=== PATIENT | male | born 1965 ===

== ENCOUNTER 2016-09-28 10:36 | Inpatient (IN) | payer MEDICARE, OTHER ==
[2016-09-28 10:45] VITALS: BMI 31.2
--- NOTE | 2016-09-28 12:02 | ED PDOC ---
Lower Extremity Pain/Injury Time Seen by Provider: 09/28/16 12:01 Chief Complaint (Nursing): Lower Extremity Problem/Injury Chief Complaint (Provider): right foot and ankle pain History Per: Patient Additional Complaint(s): 50 year old male presents to ED with atraumatic pain and swelling to right foot and lower leg that started about 3 days ago. No fever or chills. Patient able to walk and fully bear weight. He rates pain as 5/10. Patient denies recent travel, denies chest pain, SOB or CONKLIN. Patient states he has history of left leg DVT. He takes aspirin daily but does not take any other blood thinners. Past Medical History Reviewed: Historical Data, Nursing Documentation, Vital Signs Vital Signs: Last Vital Signs Temp 98.3 F 09/28/16 10:45 Pulse 70 09/28/16 10:45 Resp 17 09/28/16 10:45 BP 132/72 09/28/16 10:45 Pulse Ox 97 09/28/16 10:45 - Medical History PMH: Anxiety, Back Problems, Depression, Deep Vein Thrombosis (to left leg several years ago), HTN, Hyperlipidemia - Surgical History Surgical History: Hernia Repair Other surgeries: bilateral leg surgery, polyp removed from throat - Family History Family History: States: No Known Family Hx - Living Arrangements Living Arrangements: With Family - Social History Current smoker - smoking cessation education provided: Yes ("sometimes") Alcohol: None Drugs: Denies - Home Medications Home Medications: Ambulatory Orders Medication Instructions Recorded Aspirin [Ecotrin] 81 mg PO DAILY 12/13/15 Benztropine [Cogentin] 2 mg PO BID 12/13/15 Docusate Sodium [Stool Softener] 200 mg PO HS 12/13/15 Topiramate [Topamax] 50 mg PO BID 12/13/15 cloZAPine [Clozaril] 50 mg PO BID 12/13/15 cloZAPine [Clozaril] 100 mg PO BID 12/13/15 Acetaminophen with Codeine 1 tab PO BID PRN 09/28/16 [Tylenol with Codeine No. 3 300 mg-30 mg] Atorvastatin [Lipitor] 10 mg PO DAILY 09/28/16 Cyclobenzaprine [Flexeril] 5 mg PO DAILY PRN 09/28/16 Metformin ER [Glucophage XR] 500 mg PO DAILY 09/28/16 Nebivolol [Bystolic] 10 mg PO DAILY 09/28/16 Cohocton-3 Fatty Acids [Cohocton-3] 1,000 mg PO BID 09/28/16 - Allergies Allergies/Adverse Reactions: Allergies Allergy/AdvReac Type Severity Reaction Status Date / Time chlorpromazine HCl Allergy other Verified 12/12/15 22:36 [From Thorazine] haloperidol [From Haldol] Allergy other Verified 12/12/15 22:37 haloperidol lactate Allergy other Verified 12/12/15 22:37 [From Haldol] Penicillins Allergy CONGESTION Verified 12/12/15 22:36 PORK Allergy NAUSEA Verified 12/12/15 22:36 Wells Criteria for PE - Wells Criteria for Pulmonary Embolism Clinical Signs and Symptoms of DVT: Yes P.E is #1 Diagnosis, or Equally Likely: No Heart Rate >100: No Immobilization at least 3 days;Surgery previous 4 weeks: No Previous, objectively diagnosed PE or DVT: No Hemoptysis: No Malignancy w/treatment within 6 months, or palliative: No Total Score: 3 Review of Systems ROS Statement: Except As Marked, All Systems Reviewed And Found Negative Constitutional: Negative for: Fever Cardiovascular: Negative for: Chest Pain Respiratory: Negative for: Cough, Shortness of Breath Musculoskeletal: Positive for: Other (right leg and foot pain and swelling) Neurological: Negative for: Weakness, Numbness, Headache, Dizziness Physical Exam - Reviewed Nursing Documentation Reviewed: Yes Vital Signs Reviewed: Yes - Physical Exam Appears: Positive for: Well, Non-toxic, No Acute Distress Skin: Negative for: Rash Eye Exam: Positive for: Normal appearance Cardiovascular/Chest: Positive for: Regular Rate, Rhythm Respiratory: Positive for: Normal Breath Sounds Gastrointestinal/Abdominal: Positive for: Soft. Negative for: Tenderness Extremity: Positive for: Tenderness (right foot and ankle, right calf), Calf Tenderness (right ), Swelling (right calf, foot and ankle). Negative for: Deformity Neurologic/Psych: Positive for: Alert, Oriented, Gait (steady) - Laboratory Results Result Diagrams: 09/28/16 12:50 09/28/16 12:50 - ECG Interpretation Of ECG: Sinus silvio 61 bpm in [facility], reviewed by PA and ED attending. O2 Sat by Pulse Oximetry: 97 Pulse Ox Interpretation: Normal - Other Rad CXR X-Ray: Interpreted by Me, Viewed By Me X-Ray Interpretation: normal study Doppler right leg X-Ray: Read By Radiologist X-Ray Interpretation: see below Right foot, ankle, tib/fib x-rays X-Ray: Interpreted by Me, Viewed By Me X-Ray Interpretation: no fx, no dislocation, heel spur Medical Decision Making Medical Decision Makin50 year old with right leg pain and swelling Plan: CBC CMP Trop BMP PT/PTT Doppler right leg X-rays right foot, ankle, tib/fib PO tylenol EKG US: IMPRESSION: Positive examination for acute deep vein thrombosis extending from the popliteal tibial vein proximally to the distal superficial femoral vein. PMD is Dr. Gupta, case was d/w Dr. Gupta who states to admit patient to telemetry and order initial dose lovenox. Patient aware of all findings and agrees with admission. Disposition - Clinical Impression Clinical Impression: Right leg DVT - Patient ED Disposition Is Patient to be Admitted: Yes - Disposition Disposition Time: 16:06 Condition: FAIR - Pt Status Changed To: Hospital Disposition Of: Inpatient - Admit Certification Admit to Inpatient:: After my assessment, the patient will require hospitalization for at least two midnights. This is because of the severity of symptoms shown, intensity of services needed, and/or the medical risk in this patient being treated as an outpatient. - POA Present On Arrival: None Results - Lab Results Lab Results: 09/28/16 09/28/16 09/28/16 12:50 12:50 12:50 WBC 6.7 RBC 4.46 Hgb 13.6 Hct 40.8 MCV 91.5 MCH 30.6 MCHC 33.4 RDW 14.8 H Plt Count 135 MPV 10.1 Neut % (Auto) 47.8 L Lymph % (Auto) 38.6 [place] % (Auto) 7.1 Eos % (Auto) 5.4 H Baso % (Auto) 1.1 Neut # 3.2 Lymph # 2.6 [place] # 0.5 Eos # 0.4 Baso # 0.1 PT 11.2 INR 1.1 APTT 23.7 L Sodium 144 Potassium 3.9 Chloride 113 H Carbon Dioxide 20 L Anion Gap 15 BUN 10 Creatinine 0.9 Est GFR ( Amer) > 60 Est GFR (Non-Af Amer) > 60 Random Glucose 121 H Calcium 9.3 Total Bilirubin 0.6 AST 28 ALT 43 Alkaline Phosphatase 95 Troponin I < 0.0120 NT-Pro-B Natriuret Pep 74.4 Total Protein 7.3 Albumin 4.4 Globulin 2.9 Albumin/Globulin Ratio 1.5
[2016-09-28 13:08] LABS: BASO # 0.1 K/uL (0.0-0.2); BASO % 1.1 % (0.0-2.0); EOS # 0.4 K/uL (0.0-0.7); EOS % 5.4 % (0.0-4.0); HEMOGLOBIN 13.6 g/dL (12.0-18.0); LYMPH # 2.6 K/uL (1.0-4.3); LYMPH % 38.6 % (20.0-40.0); MEAN CELL VOLUME 91.5 fl (80.0-94.0); MEAN CORPUSCULAR HEMOGLOBIN 30.6 pg (27.0-31.0); MEAN CORPUSCULAR HGB CONC 33.4 g/dL (33.0-37.0); MEAN PLATELET VOLUME 10.1 fl (7.2-11.7); MONO # 0.5 K/uL (0.0-0.8); MONO % 7.1 % (0.0-10.0); NEUT # 3.2 K/uL (1.8-7.0); NEUT % 47.8 % (50.0-75.0); NRBC % 0.2 % (0.0-0.0); RBC 4.46 Mil/uL (4.40-5.90); RED CELL DISTRIBUTION WIDTH 14.8 % (11.5-14.5); WHITE BLOOD COUNT 6.7 K/uL (4.8-10.8)
[2016-09-28 13:23] LABS: ALB/GLOB RATIO 1.5 (1.0-2.1); ALBUMIN 4.4 g/dL (3.5-5.0); ALT/SGPT 43 U/L (21-72); AST/SGOT 28 U/L (17-59); BLOOD UREA NITROGEN 10 mg/dl (9-20); CALCIUM 9.3 mg/dL (8.4-10.2); GFR AFRICAN-AMERICAN > 60; GFR NON-AFRICAN AMERICAN > 60
[2016-09-28 13:25] LABS: INR 1.1 (0.9-1.2); PROTHROMBIN TIME 11.2 Seconds (9.8-13.1)
[2016-09-28 13:26] LABS: PARTIAL THROMBOPLASTIN TIME 23.7 Seconds (25.6-37.1)
[2016-09-28 13:35] LABS: B-TYPE NATRIURETIC PEPTIDE 74.4 pg/ml (0-900)
[2016-09-28] MEDS ORDERED: Enoxaparin 80 mg Syringe SC STA (14:15)
--- NOTE | 2016-09-28 14:28 | US ---
PROCEDURE: Right lower extremity venous duplex Doppler. HISTORY: swelling right calf and foot COMPARISON: None available. TECHNIQUE: Common femoral, superficial femoral, popliteal and posterior tibial veins were evaluated. Flow was assessed with color Doppler, compressibility, assessment of phasic flow and augmentation response. FINDINGS: COMMON FEMORAL VEIN: Unremarkable normal compressibility augmentation and phases [place] SUPERFICIAL FEMORAL VEIN: Noncompressibility in the distal right superficial femoral vein. POPLITEAL VEIN: Noncompressible right popliteal vein. POSTERIOR TIBIAL VEIN: Noncompressible right posterior tibial vein. OTHER FINDINGS: None. IMPRESSION: Positive examination for acute deep vein thrombosis extending from the popliteal tibial vein proximally to the distal superficial femoral vein. Critical Results Protocol Study completed at 13:52 Results conveyed verbally 14:22 Study interpreted 14:25. September 28, 2016.
--- NOTE | 2016-09-28 14:54 | RAD ---
PROCEDURE: Radiographs of the right tibia and fibula. HISTORY: pain COMPARISON: None available. TECHNIQUE: Frontal and lateral views obtained. FINDINGS: BONES: No fracture or destructive lesion. JOINT SPACES: Unremarkable. OTHER FINDINGS: None. IMPRESSION: Unremarkable radiographs of the right tibia and fibula.
--- NOTE | 2016-09-28 14:56 | RAD ---
PROCEDURE: Right Ankle Radiographs. HISTORY: pain COMPARISON: None FINDINGS: BONES: Normal. No fracture. JOINTS: Normal. No osteoarthritis. Ankle mortise maintained. Talar dome intact SOFT TISSUES: Normal. OTHER FINDINGS: None. IMPRESSION: Normal right ankle radiographs.
--- NOTE | 2016-09-28 14:56 | RAD ---
PROCEDURE: Right Foot Radiographs. HISTORY: pain COMPARISON: None. FINDINGS: BONES: No fracture. Small plantar calcaneal spur. JOINTS: Normal. SOFT TISSUES: Normal. OTHER FINDINGS: None. IMPRESSION: Small plantar calcaneal spur. Otherwise unremarkable.
--- NOTE | 2016-09-28 14:57 | RAD ---
HISTORY: clearance COMPARISON: 12/12/2015 FINDINGS: LUNGS: No active pulmonary disease. PLEURA: No significant pleural effusion identified, no pneumothorax apparent. CARDIOVASCULAR: Normal. OSSEOUS STRUCTURES: No significant abnormalities. VISUALIZED UPPER ABDOMEN: Normal. OTHER FINDINGS: None. IMPRESSION: No active disease.
[2016-09-29] MEDS ORDERED: Acetaminophen-Codeine 300/30 mg Tab PO PRN (01:28)
[2016-09-29] MEDS: Enoxaparin 80 mg Syringe SC SCH ×2 (08:42→21:18)
[2016-09-29] MEDS: Omega-3-Acid Ethyl Esters 1 GM Cap PO SCH ×2 (08:42→16:29)
[2016-09-29] MEDS ORDERED: Patient's Own Med (Metformin Er [Glucophage Xr] 500 mg) PO SCH (09:00)
--- NOTE | 2016-09-29 10:23 | CP.PCM.HP ---
History of Present Illness - History of Present Illness History of Present Illness: This is a 50 y/o male admitted for worsening right leg pain and edema. Initial exam showed extensive DVT right leg. Patient claims that he was diagnosed to have DVT 4 years ago and was placed on meds. Currently only on aspirin Past hx depression on Psych meds, HTN hyperlipidemia back pains. DM 2 Present on Admission - Present on Admission Any Indicators Present on Admission: No History of DVT/PE: Yes History of Uncontrolled Diabetes: No Urinary Catheter: No Decubitus Ulcer Present: No Review of Systems - Integumentary Integumentary: Swelling Past Patient History - Infectious Disease Hx of Infectious Diseases: None - Past Medical History & Family History Past Medical History?: Yes - Past Social History Smoking Status: Light Smoker < 10 Cigarettes Daily - CARDIAC Hx Cardiac Disorders: Yes Hx Hypertension: Yes - PULMONARY Hx Respiratory Disorders: No - NEUROLOGICAL Hx Neurological Disorder: No - HEENT Hx HEENT Problems: No - RENAL Hx Chronic Kidney Disease: No - ENDOCRINE/METABOLIC Hx Endocrine Disorders: No - HEMATOLOGICAL/ONCOLOGICAL Hx Blood Disorders: No Hx AIDS: No Hx Human Immunodeficiency Virus (HIV): No - INTEGUMENTARY Hx Dermatological Problems: No - MUSCULOSKELETAL/RHEUMATOLOGICAL Hx Musculoskeletal Disorders: Yes Hx Back Pain: Yes Hx Falls: No - GASTROINTESTINAL Hx Gastrointestinal Disorders: No - GENITOURINARY/GYNECOLOGICAL Hx Genitourinary Disorders: No - PSYCHIATRIC Hx Psychophysiologic Disorder: Yes Hx Anxiety: Yes Hx Depression: Yes Hx Substance Use: No - SURGICAL HISTORY Hx Surgeries: Yes Other/Comment: Hx of Polyp removed from Throat - ANESTHESIA Hx Anesthesia: Yes Hx Anesthesia Reactions: No Hx Malignant Hyperthermia: No Has any member of the family had a problem w/ anesthesia?: No Meds Allergies/Adverse Reactions: Allergies Allergy/AdvReac Type Severity Reaction Status Date / Time chlorpromazine HCl Allergy other Verified 12/12/15 22:36 [From Thorazine] haloperidol [From Haldol] Allergy other Verified 12/12/15 22:37 haloperidol lactate Allergy other Verified 12/12/15 22:37 [From Haldol] Penicillins Allergy CONGESTION Verified 12/12/15 22:36 PORK Allergy NAUSEA Verified 12/12/15 22:36 Physical Exam - Head Exam Head Exam: NORMAL INSPECTION - Eye Exam Eye Exam: Normal appearance - ENT Exam ENT Exam: Mucous Membranes Moist - Respiratory Exam Respiratory Exam: Clear to Auscultation Bilateral - Cardiovascular Exam Cardiovascular Exam: REGULAR RHYTHM - GI/Abdominal Exam GI & Abdominal Exam: Normal Bowel Sounds - Neurological Exam Neurological exam: CN II-XII Intact - Psychiatric Exam Psychiatric exam: Anxious Results - Vital Signs Recent Vital Signs: Last Vital Signs Temp 98.1 F 09/29/16 08:16 Pulse 54 L 09/29/16 08:16 Resp 20 09/29/16 08:16 BP 149/72 09/29/16 08:16 Pulse Ox 96 09/29/16 08:16 - Labs Result Diagrams: 09/28/16 12:50 09/28/16 12:50 Assessment & Plan (1) Right leg DVT Status: Acute (2) Hyperlipidemia Status: Acute (3) Diabetes mellitus type 2 in nonobese Status: Acute (4) Hypertension Status: Acute - Assessment and Plan (Free Text) Plan: discussed results of exam cont all meds Lovenox 80 mg q 12 Int radiology for filter insertion hematology eval cont all other meds.
--- NOTE | 2016-09-29 10:46 | CP.PCM.CON ---
History of Present Illness - History of Present Illness History of Present Illness: This is a 50 yrs old male who was brought to the ER with c/o swelling and pain in the right foot and right leg. He was found to have diffuse DVT in the tibial and femoral artery. He gives no h/o of being immobile or travelling a long distance. No abdominal pain, no bleeding from any site. No loss of weight or appetite. He had a similar episode 4 yrs ago and was on anticoagulants for 6 months ago. No other info available on that admission. Past h/o HTN, hyperlipididemia, anxiety and back problems Past Patient History - Infectious Disease Hx of Infectious Diseases: None - Past Medical History & Family History Past Medical History?: Yes - Past Social History Smoking Status: Light Smoker < 10 Cigarettes Daily - CARDIAC Hx Cardiac Disorders: Yes Hx Hypertension: Yes - PULMONARY Hx Respiratory Disorders: No - NEUROLOGICAL Hx Neurological Disorder: No - HEENT Hx HEENT Problems: No - RENAL Hx Chronic Kidney Disease: No - ENDOCRINE/METABOLIC Hx Endocrine Disorders: No - HEMATOLOGICAL/ONCOLOGICAL Hx Blood Disorders: No Hx AIDS: No Hx Human Immunodeficiency Virus (HIV): No - INTEGUMENTARY Hx Dermatological Problems: No - MUSCULOSKELETAL/RHEUMATOLOGICAL Hx Musculoskeletal Disorders: Yes Hx Back Pain: Yes Hx Falls: No - GASTROINTESTINAL Hx Gastrointestinal Disorders: No - GENITOURINARY/GYNECOLOGICAL Hx Genitourinary Disorders: No - PSYCHIATRIC Hx Psychophysiologic Disorder: Yes Hx Anxiety: Yes Hx Depression: Yes Hx Substance Use: No - SURGICAL HISTORY Hx Surgeries: Yes Other/Comment: Hx of Polyp removed from Throat - ANESTHESIA Hx Anesthesia: Yes Hx Anesthesia Reactions: No Hx Malignant Hyperthermia: No Has any member of the family had a problem w/ anesthesia?: No Meds Allergies/Adverse Reactions: Allergies Allergy/AdvReac Type Severity Reaction Status Date / Time chlorpromazine HCl Allergy other Verified 12/12/15 22:36 [From Thorazine] haloperidol [From Haldol] Allergy other Verified 12/12/15 22:37 haloperidol lactate Allergy other Verified 12/12/15 22:37 [From Haldol] Penicillins Allergy CONGESTION Verified 12/12/15 22:36 PORK Allergy NAUSEA Verified 12/12/15 22:36 - Medications Medications: Current Medications Acetaminophen/Codeine Phosphate (Tylenol/Codeine 300 Mg/30 Mg) 1 tab PO BID PRN PRN Reason: Pain, severe (8-10) Aspirin (Ecotrin) 81 mg PO DAILY [facility] Last Admin: 09/29/16 08:43 Dose: 81 mg Atorvastatin Calcium (Lipitor) 10 mg PO DAILY [facility] Last Admin: 09/29/16 08:42 Dose: 10 mg Benztropine Mesylate (Cogentin) 2 mg PO BID [facility] Last Admin: 09/29/16 08:43 Dose: 2 mg Cyclobenzaprine HCl (Flexeril) 5 mg PO DAILY PRN PRN Reason: Muscle spasm Docusate Sodium (Colace) 200 mg PO [facility] Enoxaparin Sodium (Lovenox) 80 mg SC Q12 [facility] PRN Reason: Protocol Last Admin: 09/29/16 08:42 Dose: 80 mg Metformin HCl (Glucophage) 500 mg PO BID [facility] Last Admin: 09/29/16 08:42 Dose: 500 mg Metoprolol Tartrate (Lopressor) 50 mg PO Q12 [facility] Last Admin: 09/29/16 08:47 Dose: Not Given [id number] Ethyl Esters (Lovaza) 1 gm PO BID [facility] Last Admin: 09/29/16 08:42 Dose: 1 gm Topiramate (Topamax) 50 mg PO BID [facility] Last Admin: 09/29/16 08:43 Dose: 50 mg Physical Exam - Additional Findings Additional findings: Physical exam; Alert. well oriented, in no acute distress neck; supple, no adenopathycheat; Clear, no rales, or rhonchi Chest;Heart, no murmur Heart; RSR, no murmur Abd; Soft, no mass, no h/s megaly Right lower extremity swollen, but no redness. Results - Vital Signs Recent Vital Signs: Last Vital Signs Temp 98.1 F 09/29/16 08:16 Pulse 54 L 09/29/16 08:16 Resp 20 09/29/16 08:16 BP 149/72 09/29/16 08:16 Pulse Ox 96 09/29/16 08:16 - Labs Result Diagrams: 09/28/16 12:50 09/28/16 12:50 Assessment & Plan - Assessment and Plan (Free Text) Assessment: Impression; DVT right lower extremity. ? Hypercoagulable state, ?occult malignancies. Plan: Plan; Will do a work up for hypercoagulable state. Ct scan of the chest ,abd and pelvis. Continue the lovenox - Date & Time Date: 09/29/16 Time: 11:12
--- NOTE | 2016-09-29 13:41 | PCM.IRP ---
Chief Complaint: DVT Objective - Vital Signs/Intake and Output Vital Signs (last 24 hours): Vital Signs - 24 hr 09/28/16 09/28/16 09/28/16 16:07 18:29 20:28 Temperature 98.2 F 98.4 F Pulse Rate 59 L 62 Pulse Rate [ Left Brachial] Respiratory 18 20 Rate Blood Pressure 132/78 136/74 O2 Sat by Pulse 97 99 Oximetry 09/29/16 09/29/16 09/29/16 00:03 01:59 05:27 Temperature 97.6 F 97.6 F Pulse Rate 59 L 54 L Pulse Rate [ 58 L Left Brachial] Respiratory 20 18 20 Rate Blood Pressure 116/66 128/54 L O2 Sat by Pulse 98 98 96 Oximetry 09/29/16 09/29/16 09/29/16 08:16 09:00 13:04 Temperature 98.1 F 98.0 F Pulse Rate 54 L 54 L 71 Pulse Rate [ Left Brachial] Respiratory 20 18 Rate Blood Pressure 149/72 118/66 O2 Sat by Pulse 96 100 Oximetry - Medications Medications: Current Medications Acetaminophen/Codeine Phosphate (Tylenol/Codeine 300 Mg/30 Mg) 1 tab PO BID PRN PRN Reason: Pain, severe (8-10) Aspirin (Ecotrin) 81 mg PO DAILY [facility] Last Admin: 09/29/16 08:43 Dose: 81 mg Atorvastatin Calcium (Lipitor) 10 mg PO DAILY [facility] Last Admin: 09/29/16 08:42 Dose: 10 mg Benztropine Mesylate (Cogentin) 2 mg PO BID [facility] Last Admin: 09/29/16 08:43 Dose: 2 mg Cyclobenzaprine HCl (Flexeril) 5 mg PO DAILY PRN PRN Reason: Muscle spasm Docusate Sodium (Colace) 200 mg PO [facility] Enoxaparin Sodium (Lovenox) 80 mg SC Q12 [facility] PRN Reason: Protocol Last Admin: 09/29/16 08:42 Dose: 80 mg Metformin HCl (Glucophage) 500 mg PO BID [facility] Last Admin: 09/29/16 08:42 Dose: 500 mg Metoprolol Tartrate (Lopressor) 50 mg PO Q12 [facility] [id number] Ethyl Esters (Lovaza) 1 gm PO BID [facility] Last Admin: 09/29/16 08:42 Dose: 1 gm Topiramate (Topamax) 50 mg PO BID [facility] Last Admin: 09/29/16 08:43 Dose: 50 mg Assessment/Plan - Assessment and Plan (Free Text) Assessment: 50 y/o patient with acute DVT currently on anticoagulation. The patient does not meet criteria for IVC filter. I have discussed this case with Dr. Rudy Weiss who agrees. Please reconsult if required.
[2016-09-29] MEDS ORDERED: Sodium Chloride 0.9% 50 ML IV ONE (14:40)
[2016-09-29] MEDS ORDERED: Iodixanol 320 MG/ML 100 ML BOTTLE IV ONE (14:40)
--- NOTE | 2016-09-29 16:14 | CT ---
PROCEDURE: CT Chest with contrast (Pulmonary Angiogram) HISTORY: DVT COMPARISON: None available. TECHNIQUE: Axial computed tomography images were obtained of the chest in the pulmonary arterial phase of enhancement. Coronal and sagittal reformatted images were created and reviewed. Maximum intensity projection (MIP) reconstructed images in the following planes: Axial projection only. Seven Intravenous contrast dose: 99 cc Visipaque 320 Mean Hounsfield unit values in the main pulmonary artery: 234.98 Radiation dose: Total exam DLP = 1226.24 mGy-cm. This CT exam was performed using one or more of the following dose reduction techniques: Automated exposure control, adjustment of the mA and/or kV according to patient size, and/or use of iterative reconstruction technique. FINDINGS: PULMONARY ARTERIES: Segmental filling defects right upper lobe pulmonary artery branches consistent with acute pulmonary embolism. No central pulmonary emboli identified. AORTA: No acute findings. No thoracic aortic aneurysm. LUNGS: Subsegmental infiltrates right lower lobe affecting lateral and basilar segments. Atelectasis at the left base also identified. PLEURAL SPACES: Unremarkable. No effusion or pneuomothorax. HEART: Unremarkable. No cardiomegaly. No significant pericardial effusion. LYMPH NODES: No lymphadenopathy. BONES, CHEST WALL: Unremarkable. No fracture or destructive lesion OTHER FINDINGS: Unremarkable. IMPRESSION: Acute pulmonary embolism confined to the right upper lobe pulmonary arteries. No central pulmonary embolism identified. Critical results protocol: Study completed 14:46. Results conveyed verbally at 16:06. Results conveyed to with a read back from MICHELLE Alcaraz involved in the care and management patient Interpretation finalized and available for review 16:08.
--- NOTE | 2016-09-29 16:28 | CT ---
PROCEDURE: CT Abdomen and Pelvis with contrast HISTORY: DVT COMPARISON: None. TECHNIQUE: Contrast dose: 99 cc Visipaque 320. Radiation dose: Total exam DLP = 1226.24 mGy-cm. This CT exam was performed using one or more of the following dose reduction techniques: Automated exposure control, adjustment of the mA and/or kV according to patient size, and/or use of iterative reconstruction technique. FINDINGS: LOWER THORAX: Subsegmental atelectasis both lower lobes. LIVER: Hepatic steatosis. No focal masses. No intrahepatic bile duct dilatation or perihepatic ascites. GALLBLADDER AND BILE DUCTS: Unremarkable. PANCREAS: Unremarkable. No gross lesion or ductal dilatation. SPLEEN: Unremarkable. ADRENALS: Unremarkable. No mass. KIDNEYS AND URETERS: Unremarkable. No hydronephrosis. No solid mass. VASCULATURE: Unremarkable. No aortic aneurysm. BOWEL: Unremarkable. No obstruction. No gross mural thickening. APPENDIX: Normal appendix. PERITONEUM: Unremarkable. No free fluid. No free air. LYMPH NODES: Unremarkable. No enlarged lymph nodes. BLADDER: Unremarkable. REPRODUCTIVE: Unremarkable. BONES: No acute fracture. OTHER FINDINGS: Bilateral fat containing inguinal hernias. IMPRESSION: No significant or acute findings to account for/ related to the clinical presentation. Particular attention directed to the inferior vena cava and pelvic veins. No evidence of proximal propagation into the abdomen and pelvis in in individual who by history has deep vein thrombosis right lower extremity.
--- NOTE | 2016-09-29 18:00 | CARD ---
APPROVED REPORT EKG Measurement Heart [id number] <Conclusion> Sinus rhythm with premature atrial complexes in a pattern of bigeminy Otherwise normal ECG
[2016-09-29] MEDS ORDERED: DOCUSATE SODIUM 200 MG PO SCH (22:00)
[2016-09-30 07:20] LABS: INR 1.2 (0.9-1.2); PROTHROMBIN TIME 12.5 Seconds (9.8-13.1)
[2016-09-30] MEDS: Enoxaparin 80 mg Syringe SC SCH ×2 (08:14→22:10)
[2016-09-30] MEDS: Omega-3-Acid Ethyl Esters 1 GM Cap PO SCH ×2 (08:16→16:48)
--- NOTE | 2016-09-30 10:27 | CP.PCM.PN ---
Subjective - Date & Time of Evaluation Date of Evaluation: 09/30/16 Time of Evaluation: 10:25 - Subjective Subjective: Patient is doing well Has no problems with Lovenox No GI bleed Noted some pallor. Has no fever. Objective - Vital Signs/Intake and Output Vital Signs (last 24 hours): Temp Pulse Resp BP Pulse Ox 98.4 F 70 18 136/71 96 09/30/16 08:00 09/30/16 08:15 09/30/16 08:00 09/30/16 08:15 09/30/16 08:00 - Medications Medications: Current Medications Acetaminophen/Codeine Phosphate (Tylenol/Codeine 300 Mg/30 Mg) 1 tab PO BID PRN PRN Reason: Pain, severe (8-10) Aspirin (Ecotrin) 81 mg PO DAILY [facility] Last Admin: 09/30/16 08:16 Dose: 81 mg Atorvastatin Calcium (Lipitor) 10 mg PO DAILY [facility] Last Admin: 09/30/16 08:15 Dose: 10 mg Benztropine Mesylate (Cogentin) 2 mg PO BID [facility] Last Admin: 09/30/16 08:16 Dose: 2 mg Cyclobenzaprine HCl (Flexeril) 5 mg PO DAILY PRN PRN Reason: Muscle spasm Docusate Sodium (Colace) 200 mg PO HS [facility] Last Admin: 09/29/16 21:17 Dose: 200 mg Enoxaparin Sodium (Lovenox) 80 mg SC Q12 [facility] PRN Reason: Protocol Last Admin: 09/30/16 08:14 Dose: 80 mg Metformin HCl (Glucophage) 500 mg PO BID [facility] Last Admin: 09/30/16 08:14 Dose: 500 mg Metoprolol Tartrate (Lopressor) 50 mg PO Q12 [facility] Last Admin: 09/30/16 08:15 Dose: 50 mg [id number]-8-Xcef Ethyl Esters (Lovaza) 1 gm PO BID [facility] Last Admin: 09/30/16 08:16 Dose: 1 gm Topiramate (Topamax) 50 mg PO BID [facility] Last Admin: 09/30/16 08:15 Dose: 50 mg - Labs Labs: PT 12.5 Seconds (9.8-13.1) 09/30/16 06:10 INR 1.2 (0.9-1.2) 09/30/16 06:10 APTT 23.7 Seconds (25.6-37.1) L 09/28/16 12:50 - Head Exam Head Exam: NORMAL INSPECTION - Eye Exam Eye Exam: Normal appearance - ENT Exam ENT Exam: Mucous Membranes Moist - Respiratory Exam Respiratory Exam: Clear to Ausculation Bilateral - Cardiovascular Exam Cardiovascular Exam: REGULAR RHYTHM - GI/Abdominal Exam GI & Abdominal Exam: Normal Bowel Sounds - Neurological Exam Neurological Exam: Awake, Oriented x3 - Psychiatric Exam Psychiatric exam: Anxious Assessment and Plan (1) Right leg DVT Status: Acute (2) Hyperlipidemia Status: Acute (3) Diabetes mellitus type 2 in nonobese Status: Acute (4) Hypertension Status: Acute (5) Pulmonary embolism Status: Acute - Assessment and Plan (Free Text) Plan: Cont meds Cont tx Cont Lovenox follow up with Dr Kimo Weiss
[2016-09-30 12:33] LABS: HEMOGLOBIN 14.2 g/dL (12.0-18.0); MEAN CORPUSCULAR HEMOGLOBIN 30.6 pg (27.0-31.0); MEAN CORPUSCULAR HGB CONC 33.6 g/dL (33.0-37.0); RBC 4.63 Mil/uL (4.40-5.90); RED CELL DISTRIBUTION WIDTH 14.5 % (11.5-14.5); WHITE BLOOD COUNT 5.6 K/uL (4.8-10.8)
[2016-09-30 12:45] LABS: BLOOD UREA NITROGEN 11 mg/dl (9-20); CALCIUM 9.7 mg/dL (8.4-10.2); GFR AFRICAN-AMERICAN > 60; GFR NON-AFRICAN AMERICAN > 60
[2016-09-30 14:52] LABS: CARDIOLIPIN AB (IGA) <11 APL (<=11)
[2016-10-01 05:12] VITALS: RESP 18
[2016-10-01 08:30] VITALS: BP 119/72; TEMP 99; O2SAT 98
--- NOTE | 2016-10-01 08:56 | CP.PCM.PN ---
Subjective - Date & Time of Evaluation Date of Evaluation: 10/01/16 Time of Evaluation: 08:54 - Subjective Subjective: Pt is feeling better. All the hypercoag tests are not back yet, but the cardiolipin antibodies are negative. The CT scan did not show any malignsnt process, but the chest CT showed a Pe in the peripheral area of the right upper lobe. Objective - Vital Signs/Intake and Output Vital Signs (last 24 hours): Temp Pulse Resp BP Pulse Ox 99 F 56 L 18 119/72 98 10/01/16 08:00 10/01/16 08:00 10/01/16 08:00 10/01/16 08:00 10/01/16 08:00 - Medications Medications: Current Medications Acetaminophen/Codeine Phosphate (Tylenol/Codeine 300 Mg/30 Mg) 1 tab PO BID PRN PRN Reason: Pain, severe (8-10) Aspirin (Ecotrin) 81 mg PO DAILY [facility] Last Admin: 09/30/16 08:16 Dose: 81 mg Atorvastatin Calcium (Lipitor) 10 mg PO DAILY [facility] Last Admin: 09/30/16 08:15 Dose: 10 mg Benztropine Mesylate (Cogentin) 2 mg PO BID [facility] Last Admin: 09/30/16 16:48 Dose: 2 mg Cyclobenzaprine HCl (Flexeril) 5 mg PO DAILY PRN PRN Reason: Muscle spasm Docusate Sodium (Colace) 200 mg PO HS [facility] Last Admin: 09/30/16 22:07 Dose: Not Given Enoxaparin Sodium (Lovenox) 80 mg SC Q12 [facility] PRN Reason: Protocol Last Admin: 09/30/16 22:10 Dose: 80 mg Metformin HCl (Glucophage) 500 mg PO BID [facility] Last Admin: 09/30/16 16:48 Dose: 500 mg Metoprolol Tartrate (Lopressor) 50 mg PO Q12 [facility] Last Admin: 09/30/16 22:10 Dose: 50 mg Tlkvb-0-Vxar Ethyl Esters (Lovaza) 1 gm PO BID [facility] Last Admin: 09/30/16 16:48 Dose: 1 gm Topiramate (Topamax) 50 mg PO BID [facility] Last Admin: 09/30/16 16:48 Dose: 50 mg - Labs Labs: 09/30/16 12:15 09/30/16 12:15 PT 12.5 Seconds (9.8-13.1) 09/30/16 06:10 INR 1.2 (0.9-1.2) 09/30/16 06:10 APTT 23.7 Seconds (25.6-37.1) L 09/28/16 12:50 Assessment and Plan - Assessment and Plan (Free Text) Plan: Plan; Pt can be switched to xarelto which he should continue for at least 6 months.If he is positive for any hypercoag tests he may need the anticoagulants for life
[2016-10-01] MEDS: Enoxaparin 80 mg Syringe SC SCH (09:08)
[2016-10-01] MEDS: Omega-3-Acid Ethyl Esters 1 GM Cap PO SCH (09:13)
[2016-10-01 09:15] VITALS: PULSE 61
--- NOTE | 2016-10-01 10:51 | CP.PCM.DIS ---
Provider - Provider Date of Admission: 09/28/16 14:31 Attending physician: Santiago Gupta MD Diagnosis - Discharge Diagnosis (1) Right leg DVT Status: Acute (2) Hyperlipidemia Status: Acute (3) Diabetes mellitus type 2 in nonobese Status: Acute (4) Hypertension Status: Acute (5) Pulmonary embolism Status: Acute Hospital Course - Lab Results Lab Results: Most Recent Lab Values WBC 5.6 K/uL (4.8-10.8) 09/30/16 12:15 RBC 4.63 Mil/uL (4.40-5.90) 09/30/16 12:15 Hgb 14.2 g/dL (12.0-18.0) 09/30/16 12:15 Hct 42.1 % (35.0-51.0) 09/30/16 12:15 MCV 91.0 fl (80.0-94.0) 09/30/16 12:15 MCH 30.6 pg (27.0-31.0) 09/30/16 12:15 MCHC 33.6 g/dL (33.0-37.0) 09/30/16 12:15 RDW 14.5 % (11.5-14.5) 09/30/16 12:15 Plt Count 139 K/uL (130-400) 09/30/16 12:15 MPV 10.1 fl (7.2-11.7) 09/28/16 12:50 Neut % (Auto) 47.8 % (50.0-75.0) L 09/28/16 12:50 Lymph % (Auto) 38.6 % (20.0-40.0) 09/28/16 12:50 [place] % (Auto) 7.1 % (0.0-10.0) 09/28/16 12:50 Eos % (Auto) 5.4 % (0.0-4.0) H 09/28/16 12:50 Baso % (Auto) 1.1 % (0.0-2.0) 09/28/16 12:50 Neut # 3.2 K/uL (1.8-7.0) 09/28/16 12:50 Lymph # 2.6 K/uL (1.0-4.3) 09/28/16 12:50 Thurston # 0.5 K/uL (0.0-0.8) 09/28/16 12:50 Eos # 0.4 K/uL (0.0-0.7) 09/28/16 12:50 Baso # 0.1 K/uL (0.0-0.2) 09/28/16 12:50 PT 12.5 Seconds (9.8-13.1) 09/30/16 06:10 INR 1.2 (0.9-1.2) 09/30/16 06:10 APTT 23.7 Seconds (25.6-37.1) L 09/28/16 12:50 Sodium 143 mmol/l (132-148) 09/30/16 12:15 Potassium 4.4 MMOL/L (3.6-5.0) 09/30/16 12:15 Chloride 106 mmol/L (98-107) 09/30/16 12:15 Carbon Dioxide 27 mmol/L (22-30) 09/30/16 12:15 Anion Gap 14 (10-20) 09/30/16 12:15 BUN 11 mg/dl (9-20) 09/30/16 12:15 Creatinine 0.9 mg/dL (0.8-1.5) 09/30/16 12:15 Est GFR ( Amer) > 60 09/30/16 12:15 Est GFR (Non-Af Amer) > 60 09/30/16 12:15 POC Glucose (mg/dL) 89 mg/dL (65-110) 10/01/16 05:28 Random Glucose 86 mg/dL (75-110) 09/30/16 12:15 Calcium 9.7 mg/dL (8.4-10.2) 09/30/16 12:15 Total Bilirubin 0.6 mg/dl (0.2-1.3) 09/28/16 12:50 AST 28 U/L (17-59) 09/28/16 12:50 ALT 43 U/L (21-72) 09/28/16 12:50 Alkaline Phosphatase 95 U/L (38-126) 09/28/16 12:50 Troponin I < 0.0120 ng/mL (0.00-0.120) 09/28/16 12:50 NT-Pro-B Natriuret Pep 74.4 pg/ml (0-900) 09/28/16 12:50 Total Protein 7.3 G/DL (6.3-8.2) 09/28/16 12:50 Albumin 4.4 g/dL (3.5-5.0) 09/28/16 12:50 Globulin 2.9 gm/dL (2.2-3.9) 09/28/16 12:50 Albumin/Globulin Ratio 1.5 (1.0-2.1) 09/28/16 12:50 Anti-Cardiolipin IgG Ab <14 GPL (<=14) 09/29/16 11:00 Anti-Cardiolipin IgA Ab <11 APL (<=11) 09/29/16 11:00 Anti-Cardiolipin IgM Ab <12 MPL (<=12) 09/29/16 11:00 - Hospital Course Hospital Course: This is a 50 y/o male admitted for DVT right leg Discharge Exam - Head Exam Head Exam: NORMAL INSPECTION Discharge Plan - Follow Up Plan Condition: FAIR Disposition: HOME/ ROUTINE
[2016-10-01 22:53] LABS: CARDIOLIPIN AB (IGA) <11 APL (<=11); CARDIOLIPIN AB (IGG) <14 GPL (<=14)
[2016-10-02 05:16] LABS: B2 GLYCOPROTEIN I AB(IGA) <9 SAU (<=20); B2 GLYCOPROTEIN I AB(IGG) <9 SGU (<=20); B2 GLYCOPROTEIN I AB(IGM) <9 SMU (<=20)
[2016-10-02 06:03] LABS: CARDIOLIPIN AB (IGM) <12 MPL (<=12); PHOSPHATIDYLSERINE AB IGA <20 U/mL (<20); PHOSPHATIDYLSERINE AB IGG <10 U/mL (<10); PHOSPHATIDYLSERINE AB IGM <25 U/mL (<25)
== END 2016-10-01 13:33 | disposition home or self-care (01) | DRG 299 ==
LOC: H.ER 10:36 → H.ERHOLD 14:31 → H.TEL 22:02
PROVIDERS: ADMIT Family Medicine; ATTEND Family Medicine
DX: I82.411 Acute embolism and thrombosis of right femoral vein (principal); I26.99 Other pulmonary embolism without acute cor pulmonale; I82.441 Acute embolism and thrombosis of right tibial vein; I10 Essential (primary) hypertension; E11.9 Type 2 diabetes mellitus without complications; E78.5 Hyperlipidemia, unspecified; F41.9 Anxiety disorder, unspecified; F32.9 Major depressive disorder, single episode, unspecified; F17.210 Nicotine dependence, cigarettes, uncomplicated; Z86.718 Personal history of other venous thrombosis and embolism; Z79.82 Long term (current) use of aspirin; Z88.0 Allergy status to penicillin

== ENCOUNTER 2016-11-15 12:10 | Emergency (ER) | payer MEDICARE, OTHER ==
[2016-11-15 12:10] VITALS: BMI 31.2
[2016-11-15 13:16] VITALS: BP 137/80; PULSE 81; RESP 16; TEMP 98.4; O2SAT 100
--- NOTE | 2016-11-15 14:09 | ED PDOC ---
HPI: CCC, URI, Sore Throat Time Seen by Provider: 11/15/16 13:56 Chief Complaint (Nursing): Cough, Cold, Congestion Chief Complaint (Provider): cough History Per: Patient History/Exam Limitations: no limitations Onset/Duration Of Symptoms: Days (2) Associated Symptoms: Fever, Chills, Cough, Sputum, Myalgias, Other (HIRSCH sinus). denies: Sore Throat, Neck Pain, Sinus Drainage, Nasal Congestion, Nausea, Vomiting, Diarrhea Past Medical History Reviewed: Historical Data, Nursing Documentation, Vital Signs Vital Signs: Last Vital Signs Temp 98.4 F 11/15/16 13:13 Pulse 81 11/15/16 13:13 Resp 16 11/15/16 13:13 BP 137/80 11/15/16 13:13 Pulse Ox 100 11/15/16 14:10 - Medical History PMH: Anxiety, Back Problems, Depression, Deep Vein Thrombosis (to left leg several years ago), Emphysema, HTN, Hyperlipidemia Denies: HIV, Chronic Kidney Disease - Surgical History Surgical History: Hernia Repair - Family History Family History: States: Unknown Family Hx - Immunization History Hx Influenza Vaccination: No Hx Pneumococcal Vaccination: No - Home Medications Home Medications: Ambulatory Orders Medication Instructions Recorded Aspirin [Ecotrin] 81 mg PO DAILY 12/13/15 Benztropine [Cogentin] 2 mg PO BID 12/13/15 Docusate Sodium [Stool Softener] 200 mg PO HS 12/13/15 Topiramate [Topamax] 50 mg PO BID 12/13/15 cloZAPine [Clozaril] 50 mg PO BID 12/13/15 cloZAPine [Clozaril] 100 mg PO BID 12/13/15 Acetaminophen with Codeine 1 tab PO BID PRN 09/28/16 [Tylenol with Codeine #3 Tablet] Atorvastatin [Lipitor] 10 mg PO DAILY 09/28/16 Cyclobenzaprine [Flexeril] 5 mg PO DAILY PRN 09/28/16 Metformin ER [Glucophage XR] 500 mg PO DAILY 09/28/16 Nebivolol [Bystolic] 10 mg PO DAILY 09/28/16 [place]-3 Fatty Acids [[place]-3] 1,000 mg PO BID 09/28/16 Xtpjo-5-Zvly Ethyl Esters 1 GM 1 gm PO BID #60 sgl 10/01/16 [Lovaza] Rivaroxaban [Xarelto] 15 mg PO BID #42 tab 10/01/16 Albuterol HFA [Ventolin HFA 90 2 puff IH Q6 #200 puff 11/15/16 mcg/actuation (8 g)] Dextromethorphan Polistirex 30 mg PO BID #100 wendie.er.12h 11/15/16 [Delsym] Guaifenesin [Mucinex] 600 mg PO BID #14 tab.er.12h 11/15/16 - Allergies Allergies/Adverse Reactions: Allergies Allergy/AdvReac Type Severity Reaction Status Date / Time chlorpromazine HCl Allergy other Verified 11/15/16 13:13 [From Thorazine] haloperidol [From Haldol] Allergy other Verified 11/15/16 13:13 haloperidol lactate Allergy other Verified 11/15/16 13:13 [From Haldol] Penicillins Allergy CONGESTION Verified 11/15/16 13:13 PORK Allergy NAUSEA Verified 11/15/16 13:13 Review of Systems ROS Statement: Except As Marked, All Systems Reviewed And Found Negative Constitutional: Positive for: Fever, Chills, Malaise Respiratory: Positive for: Cough. Negative for: Shortness of Breath, Sputum Physical Exam - Reviewed Nursing Documentation Reviewed: Yes Vital Signs Reviewed: Yes - Physical Exam Appears: Positive for: Well, Non-toxic, No Acute Distress Cardiovascular/Chest: Positive for: Regular Rate, Rhythm Respiratory: Positive for: Crackles, Wheezing Gastrointestinal/Abdominal: Positive for: Normal Exam, Bowel Sounds, Soft Back: Positive for: Normal Inspection Extremity: Positive for: Normal ROM Neurologic/Psych: Positive for: Alert, Oriented - ECG O2 Sat by Pulse Oximetry: 100 - Radiology X-Ray: Interpreted by Me X-Ray Interpretation: No Acute Disease - Progress ED Course And Treament: chest xray r/o PNA Medical Decision Making Medical Decision Making: Pt stable , advised to have pmd f.u and d.c with mucinex and delsym stable VS Disposition - Clinical Impression Clinical Impression: Cough - Patient ED Disposition Is Patient to be Admitted: No Counseled Patient/Family Regarding: Studies Performed, Diagnosis, Need For Followup, Rx Given - Disposition Disposition: Routine/Home Disposition Time: 15:17 Condition: STABLE Prescriptions: Albuterol HFA [Ventolin HFA 90 mcg/actuation (8 g)] 2 puff IH Q6 #200 puff Dextromethorphan Polistirex [Delsym] 30 mg PO BID #100 wendie.er.12h Guaifenesin [Mucinex] 600 mg PO BID #14 tab.er.12h Instructions: Cold Symptoms (ED) Forms: [facility] (Chilean)
--- NOTE | 2016-11-15 16:56 | RAD ---
HISTORY: cough COMPARISON: 09/28/2016 TECHNIQUE: Chest PA and lateral FINDINGS: LUNGS: No active pulmonary disease. PLEURA: No significant pleural effusion identified. No pneumothorax apparent. CARDIOVASCULAR: No radiographic findings to suggest acute or significant cardiovascular disease. OSSEOUS STRUCTURES: No significant abnormalities. VISUALIZED UPPER ABDOMEN: Normal. OTHER FINDINGS: None. IMPRESSION: No active disease. No significant interval change compared to the prior examination(s).
== END 2016-11-15 15:26 | disposition home or self-care (01) ==
LOC: H.ER 12:10
DX: R05 Cough (principal)

== ENCOUNTER 2017-01-18 15:44 | Inpatient (IN) | payer MEDICARE, MEDICAID ==
[2017-01-18 15:45] VITALS: BMI 31.2
--- NOTE | 2017-01-18 17:36 | ED PDOC ---
HPI: Psych/Substance Abuse Time Seen by Provider: 01/18/17 15:59 Chief Complaint (Nursing): Psychiatric Evaluation Chief Complaint (Provider): Psychiatric Evaluation History Per: EMS Associated Symptoms: denies: Suicidal Thoughts Additional History Per: Retirement Additional Complaint(s): Jeffy Traore is a 23 y/o male who presents to the emergency department for a psychiatric evaluation after he was sent from [facility] because he would not take his medication and was experiencing delusional thoughts. Per EMS and [place], patient claims he didn't feel like taking medication, but said "I feel relaxed" and has no further medical complaints. PMD: Dr. Santiago Gupta MD Past Medical History Reviewed: Historical Data, Nursing Documentation, Vital Signs Vital Signs: Last Vital Signs Temp 98.1 F 01/18/17 15:53 Pulse 63 01/18/17 15:53 Resp 18 01/18/17 15:53 BP 158/68 H 01/18/17 15:53 Pulse Ox 96 01/18/17 15:53 - Medical History PMH: Anxiety, Back Problems, Depression, Diabetes, Deep Vein Thrombosis (to left leg several years ago), Emphysema, HTN, Hyperlipidemia, Schizophrenia Denies: HIV, Chronic Kidney Disease - Surgical History Surgical History: Hernia Repair Other surgeries: left knee - Family History Family History: States: Unknown Family Hx - Social History Current smoker - smoking cessation education provided: Yes (Light Smoker < 10 Cigarettes Daily) Alcohol: None Drugs: Denies - Immunization History Hx Influenza Vaccination: No Hx Pneumococcal Vaccination: No - Home Medications Home Medications: Ambulatory Orders Medication Instructions Recorded Aspirin [Ecotrin] 81 mg PO DAILY 12/13/15 Benztropine [Cogentin] 2 mg PO BID 12/13/15 Topiramate [Topamax] 50 mg PO BID 12/13/15 cloZAPine [Clozaril] 50 mg PO BID 12/13/15 cloZAPine [Clozaril] 100 mg PO BID 12/13/15 Atorvastatin [Lipitor] 10 mg PO DAILY 09/28/16 Metformin ER [Glucophage XR] 500 mg PO DAILY 09/28/16 Nebivolol [Bystolic] 10 mg PO DAILY 09/28/16 Albuterol Sulfate [Proair Hfa] 2 puff IH Q4H PRN 01/18/17 Apixaban [Eliquis] 2.5 mg PO Q12H 01/18/17 Kmdfv-4-Yibi Ethyl Esters 1 GM 1 gm PO BID 01/18/17 [Lovaza] - Allergies Allergies/Adverse Reactions: Allergies Allergy/AdvReac Type Severity Reaction Status Date / Time chlorpromazine HCl Allergy other Verified 11/15/16 13:13 [From Thorazine] haloperidol [From Haldol] Allergy other Verified 11/15/16 13:13 haloperidol lactate Allergy other Verified 11/15/16 13:13 [From Haldol] Penicillins Allergy CONGESTION Verified 11/15/16 13:13 PORK Allergy NAUSEA Verified 11/15/16 13:13 Review of Systems ROS Statement: Except As Marked, All Systems Reviewed And Found Negative (As per HPI otherwise negative) Psych: Negative for: Suicidal ideation, Other (homicidal ideation) Physical Exam - Reviewed Nursing Documentation Reviewed: Yes Vital Signs Reviewed: Yes - Physical Exam Appears: Positive for: Non-toxic, No Acute Distress Head Exam: Positive for: ATRAUMATIC, NORMOCEPHALIC Skin: Positive for: Warm, Dry Eye Exam: Positive for: EOMI, PERRL ENT: Negative for: Pharyngeal Erythema, Tonsillar Exudate Neck: Positive for: Painless ROM, Supple Cardiovascular/Chest: Positive for: Regular Rate, Rhythm, Chest Non Tender. Negative for: Murmur Respiratory: Positive for: Normal Breath Sounds. Negative for: Respiratory Distress Gastrointestinal/Abdominal: Positive for: Soft. Negative for: Tenderness Back: Positive for: Normal Inspection. Negative for: Decreased ROM Extremity: Positive for: Normal ROM. Negative for: Deformity Lymphatic: Negative for: Adenopathy Neurologic/Psych: Positive for: Alert, customer support analyst II-XII (intact), Oriented (x3). Negative for: Motor/Sensory Deficits - Laboratory Results Result Diagrams: 01/18/17 18:54 01/18/17 18:54 - ECG O2 Sat by Pulse Oximetry: 96 (Normal RA) Medical Decision Making Medical Decision Making: Time: 1642 Initial Impression: Schizophrenia Initial Plan: -- Crisis Evaluation -- 1:1 Observation Time: 1838 Admit to hospital routine: As inpatient in Adult Psychiatry for Schizophrenia under the care of Dr. Leeann Cardenas MD 1999 Medically stable for psychiatric floor Scribe Attestation: Documented by Elvira Tobias, acting as a scribe for Brittni Portillo MD. Provider Scribe Attestation: All medical record entries made by the Scribe were at my direction and personally dictated by me. I have reviewed the chart and agree that the record accurately reflects my personal performance of the history, physical exam, medical decision making, and the department course for this patient. I have also personally directed, reviewed, and agree with the discharge instructions and disposition. Disposition - Clinical Impression Clinical Impression: Schizophrenia - Patient ED Disposition Is Patient to be Admitted: Yes (As inpatient in Adult Psychiatry under the care of Dr. Leeann Cardenas MD) - Disposition Disposition Time: 18:39 Condition: STABLE - Pt Status Changed To: Hospital Disposition Of: Inpatient - Admit Certification Admit to Inpatient:: After my assessment, the patient will require hospitalization for at least two midnights. This is because of the severity of symptoms shown, intensity of services needed, and/or the medical risk in this patient being treated as an outpatient. - POA Present On Arrival: None
[2017-01-18 19:04] LABS: BASO % 0.5 % (0.0-2.0); EOS # 0.2 K/uL (0.0-0.7); EOS % 2.2 % (0.0-4.0); HEMATOCRIT 41.4 % (35.0-51.0); LYMPH # 2.2 K/uL (1.0-4.3); LYMPH % 30.6 % (20.0-40.0); MEAN CELL VOLUME 93.7 fl (80.0-94.0); MEAN CORPUSCULAR HEMOGLOBIN 30.5 pg (27.0-31.0); MEAN CORPUSCULAR HGB CONC 32.5 g/dL (33.0-37.0); MEAN PLATELET VOLUME 10.1 fl (7.2-11.7); MONO # 0.5 K/uL (0.0-0.8); MONO % 6.4 % (0.0-10.0); NEUT # 4.2 K/uL (1.8-7.0); NEUT % 60.3 % (50.0-75.0); NRBC % 0.1 % (0.0-0.0); RED CELL DISTRIBUTION WIDTH 14.7 % (11.5-14.5)
[2017-01-18 19:16] LABS: ALB/GLOB RATIO 1.6 (1.0-2.1); ALCOHOL SERUM < 10 mg/dl (0-10); ALKALINE PHOSPHATASE 84 U/L (38-126); ALT/SGPT 38 U/L (21-72); AST/SGOT 25 U/L (17-59); BILIRUBIN,TOTAL 0.5 mg/dl (0.2-1.3); BLOOD UREA NITROGEN 10 mg/dl (9-20); CALCIUM 9.2 mg/dL (8.4-10.2); CARBON DIOXIDE 23 mmol/L (22-30); CHLORIDE 111 mmol/L (98-107); GFR AFRICAN-AMERICAN > 60; GLUCOSE,RANDOM 101 mg/dL (75-110); POTASSIUM 3.7 MMOL/L (3.6-5.0); SODIUM 146 mmol/l (132-148); TOTAL PROTEIN 7.4 G/DL (6.3-8.2)
--- NOTE | 2017-01-18 20:25 | US ---
EXAM: US Duplex Bilateral Lower Extremity Veins CLINICAL HISTORY: 51 years old, male; Pain; Leg, lower; Bilateral; Additional info: H/o dvt TECHNIQUE: Real-time ultrasound scan of the veins of the bilateral lower extremities with color Doppler flow, spectral waveform analysis and compression. COMPARISON: No relevant prior studies available. FINDINGS: Right deep veins: Normal color and spectral Doppler flow. Normal compressibility. No deep vein thrombosis from common femoral to popliteal vein. Right superficial veins: Unremarkable. Left deep veins: Normal color and spectral Doppler flow. Normal compressibility. No deep vein thrombosis from common femoral to popliteal vein. Left superficial veins: Unremarkable. Soft tissues: No popliteal cyst. IMPRESSION: 1. No evidence of DVT within the lower extremities.
[2017-01-18 20:51] LABS: RBC URINE 1 /hpf (0-3); URINE BILIRUBIN NEGATIVE (NEGATIVE); URINE BLOOD NEGATIVE (NEGATIVE); URINE COLOR YELLOW (YELLOW); URINE GLUCOSE (UA) NEG (Normal); URINE KETONE TRACE mg/dL (NEGATIVE); URINE LEUKOCYTE ESTERASE NEG Leu/uL (Negative); URINE PROTEIN NEGATIVE (NEGATIVE); URINE UROBILINOGEN 0.2-1.0 mg/dL (0.2-1.0); WBC URINE 1 /hpf (0-5)
[2017-01-18 21:20] LABS: URINE BACTERIA FEW (<OCC)
[2017-01-19 00:12] VITALS: O2SAT 98
[2017-01-19] MEDS ORDERED: Magnesium Hydroxide Susp 30 ml UD PO PRN (01:50)
[2017-01-19] MEDS ORDERED: DiphenhydrAMINE 50 mg/ml Inj IM PRN (01:50)
--- NOTE | 2017-01-19 03:17 | PCM.BM ---
<Isabell Moseley Krunal - Last Filed: 01/19/17 03:14> Treatment Plan Problems - Problems identified on initial assessmt Medication nonadherence Date Initiated: 01/19/17 Time Initiated: 03:15 Assessment reference: NA Status: Active High Risk: Violence Date Initiated: 01/19/17 Time Initiated: 03:15 Assessment reference: NA Status: Active Treatment assets and liabiliti Patient Assests: cooperative, self-reliant, ADL independent, negotiates basic needs Patient Liabilities: poor support system, medical problems - Milieu Protocol Maintain good personal hygiene: daily Encourage regular showers, every shift Remind patient to perform daily oral care Conduct patient checks and document Observation sheet: Q15 minutes Maintain personal safety: every shift Educate patient to report safety concerns to staff, every shift Monitor environment for contraband/sharps Medication safety: Monitor for expected outcome, potential side effects: every shift, Assess barriers to learning: every shift, Assess readiness for medication education: every shift <Harpal Hooks - Last Filed: 01/23/17 12:42> Family Contact Family involvement: Famliy/SO not involved Family contact: Patient declines to allow family contact at present Family contact name: Pt denied having contact with any of his family. - Outside Agency Agency 1 Care involvment: Following patient during stay, Information-sharing Agency contact name: [facility]. Counselor - Bessy. - Goals for Treatment Patient goals for treatment: Pt offered no goals. Discharge/Continuing Care - Education Needs Education Needs: Patient Medication, Patient Coping Skills, Patient Anger Management skills, Patient Personal Hygiene/Grooming - Discharge Discharge Criteria: Free of paranoid thoughts, Free of agitation, Reduction of target symptoms Discharge to:: Nursing Home - Treatment Team Participation Was Patient/Family/SO present at Treatment Team Meeting: Yes <Rhonda Kulkarni - Last Filed: 01/24/17 16:05> Family Contact - Outside Agency Agency 1 Agency contact name: Rehab Care Assistant placed call to [facility] (KATE [phone] ) and requested to speak to patients Tatiana. Bessy ruff reports patients medications were recently reduced. However, patient has been inconsistently compliant with medications for some time. Rehab Care Assistant notified outpatient clinician that patient remains selectively compliant with recommended medications on 3NP. Rehab Care Assistant asked for Bessy to confirm contact number for patients residential. Rehab Care Assistant to continue providing clinical updates regarding patients progress and discharge planning. Agency 2 Care involvment: Other Agency contact name: [facility] Agency contact number: Rehab Care Assistant placed call to [facility]) ([phone]) to discuss patients progress on 3NP. Rehab Care Assistant spoke with Faviola who stated she would notify all appropriate staff of patients need for further stabilization. Rehab Care Assistant inquired if there is any additional collateral that 3NP tx team should be made aware of. Faviola denied. Rehab Care Assistant provided call back number in the event additional collateral is needed. - Goals for Treatment Patient goals for treatment: Patient to continue stabilization on 3NP through medication management and group/supportive therapy. Patient to be encouraged to attend groups regularly to promote self-awareness, compliance, and improve insight, coping skills and self-esteem. Patient to be provided with referral for appropriate level of aftercare to reduce risk of future hospitalizations and ensure safety in the community. Discharge/Continuing Care - Treatment Team Participation Patient/Family/SO Statement: 01/24/17 16:07 Patient attended tx team this morning to discuss progress on 3NP. Patient reported feeling "achey and irritable" secondary to medication side effects. However, patient is currently selectively compliant with medications on 3NP. Patient unable to elaborate on side effects. When provided with psychoeducation as to improbability of experiencing side effects from a medication that is not being taken, patient responded with "I know what i feel. Pain and achey." Importance of compliance with medications to reduce risk of future hospitalizations discussed at length. Patient minimally receptive. Insight remains limited. Coping skills/judgment impaired. Patient denies SI/HI and is able to contract for saftey on 3NP. Patient more visible on 3NP but remains guarded and somewhat suspicious on approach. Patient refused to sign tx plan. 01/24/17 16:10 Was Patient/Family/SO present at Treatment Team Meeting: Yes <Cristina Cabello - Last Filed: 01/29/17 10:23> - Diagnosis (1) Schizophrenia Status: Acute Interventions: psychotherapy ,pharmacotherapy 01/29/17 10:23
--- NOTE | 2017-01-19 07:40 | CARD ---
APPROVED REPORT EKG Measurement Heart [id number] <Conclusion> Sinus rhythm with premature atrial complexes in a pattern of bigeminy Otherwise normal ECG
--- NOTE | 2017-01-19 09:05 | CP.PCM.CON ---
History of Present Illness - History of Present Illness History of Present Illness: Hospitalist consult note 51 y/o male with PMH of Anxiety, Depression, DM, DVT (left leg several years ago ), Emphysema, HTN, Hyperlipidemia and Schizophrenia was admitted with delusional thoughts, patient states he didn't take his medication for several days. Denies recent fever, nausea, vomiting, chest pain, palpitations, sob, headache, abdominal pain, no urinary symptoms. Denies suicidal or homicidal ideation. PMD: Dr Gupta PMH: Depression, DM, DVT, HTN, Hiperlipidemia, Schizophrenia, Anxiety. FMH: none Meds:Clozapine, lorazepam Allergies: PNC, haloperidol, chlorpromazine other allergies: pork SH: former smoker 1/2 ppd, etoh socially, denies illicit drugs. Review of Systems - Review of Systems Review of Systems: Reviewed and negative except as per HPI. Past Patient History - Infectious Disease Hx of Infectious Diseases: None - Past Medical History & Family History Past Medical History?: Yes - Past Social History Alcohol: None Drugs: Denies - CARDIAC Hx Cardiac Disorders: Yes Hx Hypercholesterolemia: Yes Hx Hypertension: Yes - PULMONARY Hx Respiratory Disorders: No Hx Tuberculosis: No - NEUROLOGICAL Hx Neurological Disorder: No HX Cerebrovascular Accident: No Hx Seizures: No - HEENT Hx HEENT Problems: No - RENAL Hx Chronic Kidney Disease: No - ENDOCRINE/METABOLIC Hx Endocrine Disorders: Yes Hx Diabetes Mellitus Type 2: Yes - HEMATOLOGICAL/ONCOLOGICAL Hx Blood Disorders: No Hx Cancer: No Hx Human Immunodeficiency Virus (HIV): No - INTEGUMENTARY Hx Dermatological Problems: No - MUSCULOSKELETAL/RHEUMATOLOGICAL Hx Musculoskeletal Disorders: Yes - GASTROINTESTINAL Hx Gastrointestinal Disorders: No - GENITOURINARY/GYNECOLOGICAL Hx Genitourinary Disorders: No Hx Sexually Transmitted Disorders: No - PSYCHIATRIC Hx Substance Use: Yes - SURGICAL HISTORY Hx Surgeries: Yes Other/Comment: as per pt. both knee surgery and forehead surgery @ age 14 y.o. - ANESTHESIA Hx Anesthesia: Yes Hx Anesthesia Reactions: No Hx Malignant Hyperthermia: No Meds Allergies/Adverse Reactions: Allergies Allergy/AdvReac Type Severity Reaction Status Date / Time chlorpromazine HCl Allergy other Verified 11/15/16 13:13 [From Thorazine] haloperidol [From Haldol] Allergy other Verified 11/15/16 13:13 haloperidol lactate Allergy other Verified 11/15/16 13:13 [From Haldol] Penicillins Allergy CONGESTION Verified 11/15/16 13:13 PORK Allergy NAUSEA Verified 11/15/16 13:13 - Medications Medications: Current Medications Acetaminophen (Tylenol 325mg Tab) 650 mg PO Q4 PRN PRN Reason: Pain, moderate (4-7) Diphenhydramine HCl (Benadryl) 50 mg IM Q6 PRN PRN Reason: Extrapyramidal S/S Unable PO Diphenhydramine HCl (Benadryl) 50 mg PO Q6 PRN PRN Reason: Extrapyramidal Symptoms Diphenhydramine HCl (Benadryl) 50 mg PO HS PRN PRN Reason: Sleep Lorazepam (Ativan) 2 mg PO Q4 PRN PRN Reason: Anxiety/Agitation Lorazepam (Ativan) 2 mg IM Q4 PRN PRN Reason: Anxiety/Agitation,Unable PO Magnesium Hydroxide (Milk Of Magnesia) 30 ml PO HS PRN PRN Reason: Constipation Physical Exam - Constitutional Appears: No Acute Distress - Head Exam Head Exam: NORMAL INSPECTION - Eye Exam Eye Exam: EOMI, PERRL - ENT Exam ENT Exam: Mucous Membranes Moist - Respiratory Exam Respiratory Exam: Clear to Auscultation Bilateral, NORMAL BREATHING PATTERN. absent: Rales, Rhonchi, Wheezes - Cardiovascular Exam Cardiovascular Exam: REGULAR RHYTHM, +S1, +S2. absent: Systolic Murmur - GI/Abdominal Exam GI & Abdominal Exam: Normal Bowel Sounds, Soft. absent: Distended - Extremities Exam Extremities exam: Negative for: calf tenderness, pedal edema - Neurological Exam Neurological exam: Alert, CN II-XII Intact, Oriented x3 - Skin Skin Exam: Dry, Warm Results - Vital Signs Recent Vital Signs: Last Vital Signs Temp 97.2 F L 01/19/17 02:20 Pulse 62 01/19/17 03:25 Resp 18 01/19/17 03:25 BP 145/72 01/19/17 02:20 Pulse Ox 98 01/19/17 00:11 - Labs Result Diagrams: 01/18/17 18:54 01/18/17 18:54 Labs: Laboratory Results - last 24 hr 01/18/17 01/18/17 01/18/17 18:54 18:54 20:50 WBC 7.0 RBC 4.42 Hgb 13.5 Hct 41.4 MCV 93.7 D MCH 30.5 MCHC 32.5 L RDW 14.7 H Plt Count 125 L MPV 10.1 Neut % (Auto) 60.3 Lymph % (Auto) 30.6 [place] % (Auto) 6.4 Eos % (Auto) 2.2 Baso % (Auto) 0.5 Neut # 4.2 Lymph # 2.2 [place] # 0.5 Eos # 0.2 Baso # 0.0 Sodium 146 Potassium 3.7 Chloride 111 H Carbon Dioxide 23 Anion Gap 16 BUN 10 Creatinine 0.9 Est GFR ( Amer) > 60 Est GFR (Non-Af Amer) > 60 Random Glucose 101 Calcium 9.2 Total Bilirubin 0.5 AST 25 ALT 38 Alkaline Phosphatase 84 Total Protein 7.4 Albumin 4.5 Globulin 2.9 Albumin/Globulin Ratio 1.6 Urine Color Urine Clarity Urine pH Ur Specific [place] Urine Protein Urine Glucose (UA) Urine Ketones Urine Blood Urine Nitrate Urine Bilirubin Urine Urobilinogen Ur Leukocyte Esterase Urine RBC (Auto) Urine Microscopic WBC Ur Squamous Epith Cells Urine Bacteria Urine Opiates Screen Negative Urine Methadone Screen Negative Ur Barbiturates Screen Negative Ur Phencyclidine Scrn Negative Ur Amphetamines Screen Negative U Benzodiazepines Scrn Negative U Oth Cocaine Metabols Negative U Cannabinoids Screen Negative Alcohol, Quantitative < 10 01/18/17 21:04 WBC RBC Hgb Hct MCV MCH MCHC RDW Plt Count MPV Neut % (Auto) Lymph % (Auto) [place] % (Auto) Eos % (Auto) Baso % (Auto) Neut # Lymph # [place] # Eos # Baso # Sodium Potassium Chloride Carbon Dioxide Anion Gap BUN Creatinine Est GFR ( Amer) Est GFR (Non-Af Amer) Random Glucose Calcium Total Bilirubin AST ALT Alkaline Phosphatase Total Protein Albumin Globulin Albumin/Globulin Ratio Urine Color Yellow Urine Clarity Slighty-cloudy Urine pH 5.0 Ur Specific [place] 1.020 Urine Protein Negative Urine Glucose (UA) Neg Urine Ketones Trace Urine Blood Negative Urine Nitrate Negative Urine Bilirubin Negative Urine Urobilinogen 0.2-1.0 Ur Leukocyte Esterase Neg Urine RBC (Auto) 1 Urine Microscopic WBC 1 Ur Squamous Epith Cells 1 Urine Bacteria Few H Urine Opiates Screen Urine Methadone Screen Ur Barbiturates Screen Ur Phencyclidine Scrn Ur Amphetamines Screen U Benzodiazepines Scrn U Oth Cocaine Metabols U Cannabinoids Screen Alcohol, Quantitative Assessment & Plan - Assessment and Plan (Free Text) Assessment: 51 yo M patient with PMH of Anxiety, Depression, DM, DVT, Emphysema, HTN, Hyperlipidemia and Schizophrenia admitted with delusional thoughts. No medical complaints at this time. Plan: Management by Psychiatry
--- NOTE | 2017-01-19 09:43 | RAD ---
HISTORY: placement COMPARISON: 11/15/2016 FINDINGS: LUNGS: No active pulmonary disease. PLEURA: No significant pleural effusion identified, no pneumothorax apparent. CARDIOVASCULAR: Normal. OSSEOUS STRUCTURES: Diffuse thoraco lumbar spondylosis. Bilateral acromioclavicular and glenohumeral joint osteoarthrosis VISUALIZED UPPER ABDOMEN: Normal. OTHER FINDINGS: None. IMPRESSION: No acute cardiopulmonary pathology.
[2017-01-19] MEDS ORDERED: Divalproex 500 mg DR(BID formulation) PO SCH (12:19)
--- NOTE | 2017-01-19 15:30 | PCM.PSYCH ---
Initial Psychiatric Evaluation - Initial Psychiatric Evaluation Chief Complaint (in patient's own words): THEY MADE ME ANGRY Patient's Reaction to Hospitalization: PT AGREED History of Present Illness and Precipitating Events: juan j is a 51 year old single male entering into the ED with complaints of possible hoomicidal ideations. 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 He then stated he went home and spoke to someone at his intermediate about it and next thing he was being picked up to come to the hospital. Patient's intermediate REPORTED THATpt was decompensating and not taking his medications as prescribed. Patient has also been having delusional thoughts. Patient was orientated times two as he was unaware as to why he had to come in to be evaluated. Patient was able to discuss his history but at times he was poor historian. t. Patient denied any substance abuse history. He denied any A/V/T and SI. Patient stated that he has been violent in the past but not often. He stated that this was more in his younger days. Patient stated that he is not homicidal at this time.. [ End ] Current Medications: Active Medications Generic Name Dose Route Start Last Admin Trade Name Freq PRN Reason Stop Dose Admin Acetaminophen 650 mg 01/19/17 01:50 Tylenol 325mg Tab PO Q4 PRN Pain, moderate (4-7) Clozapine 100 mg 01/19/17 12:05 Clozaril PO BID MODESTA Diphenhydramine HCl 50 mg 01/19/17 01:50 Benadryl IM Q6 PRN Extrapyramidal S/S Unable PO Diphenhydramine HCl 50 mg 01/19/17 01:50 Benadryl PO Q6 PRN Extrapyramidal Symptoms Diphenhydramine HCl 50 mg 01/19/17 02:04 Benadryl PO HS PRN Sleep Lorazepam 2 mg 01/19/17 01:50 Ativan PO Q4 PRN Anxiety/Agitation Lorazepam 2 mg 01/19/17 01:50 Ativan IM Q4 PRN Anxiety/Agitation,Unable PO Magnesium Hydroxide 30 ml 01/19/17 01:50 Milk Of Magnesia PO HS PRN Constipation Topiramate 75 mg 01/19/17 17:00 Topamax PO BID MODESTA Past Psychiatric History - Past Psychiatric History Explanation of prior treatment: pt has multiple inpatient hospitalizations History of Abuse: denied History of ETOH/Drug Use: denied History of Family Illness: denied Pertinent Medical Hx (Current Medical&Sleep Prob, Allergies): Allergies Allergy/AdvReac Type Severity Reaction Status Date / Time chlorpromazine HCl Allergy other Verified 11/15/16 13:13 [From Thorazine] haloperidol [From Haldol] Allergy other Verified 11/15/16 13:13 haloperidol lactate Allergy other Verified 11/15/16 13:13 [From Haldol] Penicillins Allergy CONGESTION Verified 11/15/16 13:13 PORK Allergy NAUSEA Verified 11/15/16 13:13 Aspirin [Ecotrin] 81 mg PO DAILY 12/13/15 Benztropine [Cogentin] 2 mg PO BID 12/13/15 Topiramate [Topamax] 50 mg PO BID 12/13/15 cloZAPine [Clozaril] 50 mg PO BID 12/13/15 cloZAPine [Clozaril] 100 mg PO BID 12/13/15 Atorvastatin [Lipitor] 10 mg PO DAILY 09/28/16 Metformin ER [Glucophage XR] 500 mg PO DAILY 09/28/16 Nebivolol [Bystolic] 10 mg PO DAILY 09/28/16 Albuterol Sulfate [Proair Hfa] 2 puff IH Q4H PRN 01/18/17 Apixaban [Eliquis] 2.5 mg PO Q12H 01/18/17 Eovyc-1-Qnez Ethyl Esters 1 GM [Lovaza] 1 gm PO BID 01/18/17 Mental Status Examination - Personal Presentation Personal Presentation: Looks stated age - Affect Affect: Constricted, Depressed - Motor Activity Motor Activity: Psychomotor Agitation - Reliability in Providing Information Reliability in Providing Information: Poor, due to altered mood, Poor, due to cognitve impairment - Speech Speech: Disorganized, Tangential - Mood Mood: Anxious - Formal Thought Process Formal Thought Process: Circumstantial - Hallucinations/Delusions Additional comments: pt denied perceptual disturbances, non elicited - Obsessions/Compulsions Obsessions: No Compulsions: No - Cognitive Functions Orientation: Person, Place Sensorium: Alert Abstract Thinking: [place] Judgement: Imparied, as evidence by: Poor judgement, Imparied, as evidence by: Lack of insight into illness Memory: Recent intact, as evidence by: Ability to recall events of the day - Risk Risk: Diminished functioning - Strength & Assets Inventory Strength & Assets Inventory: Life experience - Limitations Additional comments: poor insight DSM 5 DX - DSM 5 DSM 5 Diagnosis: schizoaffective disorder bipolar - Recommended/Plan of Treatment Treatment Recommendations and Plan of Treatment: clozaril 100mg bid follow up on anc topamax 75mg bid group and supportive therapy
[2017-01-20 08:11] LABS: T4 8.15 ug/dl (5.5-11.0)
[2017-01-20 08:25] LABS: THYROID STIMULATING HORMONE 0.91 mIU/ML (0.46-4.68)
--- NOTE | 2017-01-20 11:01 | PCM.PYCHPN ---
Psychiatric Progress Note - Psychiatric Progress Note Patient seen today, length of contact: pt evaluated discussed with team chart reviewed Patient Chief Complaint: IT IS THEIR FAULT AND GOD WILL GET ME OUT OF IT Problems Identified/Issues Discussed: PT ON EVALUATION, ANGRY IRRITABLE, PARANOID BELIEVING PEOPLE IN THE PROGRAM WANTED TO PUT HIM IN TROUBLE , PT ALSO RELIGOUSLY PREOCCUPIED POOR INSIGHT INTO ILLNESS, DENIED ANY CURRENT SUICIDAL OR HOMICIDAL IDEATIONS, DENIED PERCEPTUAL DISTURBANCES Medical Problems: HTN, HYPERLIPIDEMIA DSM 5 Symptoms Update: SCHIZOAFFECTIVE DISORDER Medication Change: Yes (INCREASE CLOZARIL) Medical Record Reviewed: Yes Mental Status Examination - Cognitive Function Orientation: Person, Place Attention: Poor Concentration: Poor Association: Loose Fund of Knowledge: Poor Decription of patient's judgement and insights: IMPAIRED INSIGHT AND POOR JUDGEMENT - Mood Mood: Anxious - Affect Affect: Constricted, Depressed - Speech Speech: Loud - Formal Thought Process Formal Thought Process: Paranoia, Circumstantial Psychotic Thoughts and Behaviors: PARANOID DELUSIONS AND BAHAI PREOCCUPATION - Suicidal Ideation Suicidal Ideation: No - Homicidal Ideation Homicidal Ideation: No Goal/Treatment Plan - Goal/Treatment Plan Need for Continued Stay: Discharge may exacerbated symptoms, Severe functional impairment Progress Toward Problem(s) and Goals/Treatment Plan: INCREASE clozaril [id number] with plan to uptitrate while following up on wbc and anc discontinue topamax 75mg bid atart trileptal 100mg bid with plan to uptitrate group and supportive therapy Estimated Date of D/C: 01/27/17
--- NOTE | 2017-01-21 16:11 | PCM.PYCHPN ---
Psychiatric Progress Note - Psychiatric Progress Note Patient seen today, length of contact: pt evaluated discussed with team chart reviewed Patient Chief Complaint: I FEEL DERANDED AND THAT THEY DISRESPECTED ME Problems Identified/Issues Discussed: PT ON EVALUATION, ANGRY IRRITABLE, PARANOID BELIEVING PEOPLE IN THE PROGRAM WANTED TO PUT HIM IN TROUBLE , PT ALSO RELIGOUSLY PREOCCUPIED POOR INSIGHT INTO ILLNESS, DENIED ANY CURRENT SUICIDAL OR HOMICIDAL IDEATIONS, DENIED PERCEPTUAL DISTURBANCES Medical Problems: HTN, HYPERLIPIDEMIA DSM 5 Symptoms Update: SCHIZOAFFECTIVE DISORDER BIPOLAR TYPE Medication Change: Yes (INCREASE CLOZARIL) Medical Record Reviewed: Yes Mental Status Examination - Cognitive Function Orientation: Person, Place Attention: Poor Concentration: Poor Association: Loose Fund of Knowledge: Poor Decription of patient's judgement and insights: IMPAIRED INSIGHT AND POOR JUDGEMENT - Mood Mood: Anxious - Affect Affect: Constricted, Depressed - Speech Speech: Loud - Formal Thought Process Formal Thought Process: Paranoia, Circumstantial Psychotic Thoughts and Behaviors: PARANOID DELUSIONS AND ORIENTAL ORTHODOX PREOCCUPATION - Suicidal Ideation Suicidal Ideation: No - Homicidal Ideation Homicidal Ideation: No Goal/Treatment Plan - Goal/Treatment Plan Need for Continued Stay: Discharge may exacerbated symptoms, Severe functional impairment Progress Toward Problem(s) and Goals/Treatment Plan: INCREASE clozaril TO 300mg with plan to uptitrate while following up on wbc and anc INCREASE trileptal group and supportive therapy Estimated Date of D/C: 01/27/17
--- NOTE | 2017-01-22 10:56 | PCM.PYCHPN ---
Psychiatric Progress Note - Psychiatric Progress Note Patient seen today, length of contact: pt evaluated discussed with team chart reviewed Patient Chief Complaint: pt reports feeling upset and admitted because of florid psychotic agitation having paranoid ideation that people were trying to put him in trouble and was accused of trying to kill them.pt is still internally preoccupied and still remains unstable and need stabilization Medication Change: Yes (INCREASE CLOZARIL) Medical Record Reviewed: Yes Mental Status Examination - Cognitive Function Orientation: Person, Place Attention: Poor Concentration: Poor Association: Loose Fund of Knowledge: Poor - Mood Mood: Anxious - Affect Affect: Constricted, Depressed - Speech Speech: Loud - Formal Thought Process Formal Thought Process: Paranoia, Circumstantial - Suicidal Ideation Suicidal Ideation: No - Homicidal Ideation Homicidal Ideation: No Goal/Treatment Plan - Goal/Treatment Plan Need for Continued Stay: Discharge may exacerbated symptoms, Severe functional impairment Progress Toward Problem(s) and Goals/Treatment Plan: will continue to adjust the dose of clozaril based on white cell count and engage pt in therapy and groups d/c plans as per dr forbes Estimated Date of D/C: 01/27/17
[2017-01-22 12:24] LABS: BASO % 0.3 % (0.0-2.0); EOS # 0.1 K/uL (0.0-0.7); EOS % 1.2 % (0.0-4.0); HEMATOCRIT 42.9 % (35.0-51.0); LYMPH # 1.5 K/uL (1.0-4.3); LYMPH % 19.5 % (20.0-40.0); MEAN CELL VOLUME 93.2 fl (80.0-94.0); MEAN CORPUSCULAR HEMOGLOBIN 30.8 pg (27.0-31.0); MEAN PLATELET VOLUME 9.9 fl (7.2-11.7); MONO # 0.4 K/uL (0.0-0.8); MONO % 4.9 % (0.0-10.0); NEUT # 5.8 K/uL (1.8-7.0); NEUT % 74.1 % (50.0-75.0); NRBC % 0.1 % (0.0-0.0); RED CELL DISTRIBUTION WIDTH 14.6 % (11.5-14.5); WHITE BLOOD COUNT 7.8 K/uL (4.8-10.8)
--- NOTE | 2017-01-23 11:45 | PCM.PYCHPN ---
Psychiatric Progress Note - Psychiatric Progress Note Patient seen today, length of contact: pt evaluated discussed with team chart reviewed Patient Chief Complaint: pt reports feeling upset and admitted because of florid psychotic agitation having paranoid ideation that people were trying to put him in trouble and was accused of trying to kill them.pt is still internally preoccupied and still remains unstable and need stabilization wBC count = 7.8 and normal to continue clozaril Medication Change: No Medical Record Reviewed: Yes Mental Status Examination - Cognitive Function Orientation: Person, Place Attention: Poor Concentration: Poor Association: Loose Fund of Knowledge: Poor - Mood Mood: Anxious - Affect Affect: Constricted, Depressed - Speech Speech: Loud - Formal Thought Process Formal Thought Process: Paranoia, Circumstantial - Suicidal Ideation Suicidal Ideation: No - Homicidal Ideation Homicidal Ideation: No Goal/Treatment Plan - Goal/Treatment Plan Need for Continued Stay: Discharge may exacerbated symptoms, Severe functional impairment Progress Toward Problem(s) and Goals/Treatment Plan: will continue to adjust the dose of clozaril based on white cell count and engage pt in therapy and groups d/c plans as per dr forbes Estimated Date of D/C: 01/27/17
--- NOTE | 2017-01-24 14:42 | PCM.PYCHPN ---
Psychiatric Progress Note - Psychiatric Progress Note Patient seen today, length of contact: pt evaluated discussed with team chart reviewed Patient Chief Complaint: I FEEL THEY WANTED ME IN TROUBLE Problems Identified/Issues Discussed: PT ON EVALUATION, ANGRY IRRITABLE, PARANOID BELIEVING PEOPLE IN THE PROGRAM WANTED TO PUT HIM IN TROUBLE , PT ALSO RELIGOUSLY PREOCCUPIED POOR INSIGHT INTO ILLNESS, DENIED ANY CURRENT SUICIDAL OR HOMICIDAL IDEATIONS, DENIED PERCEPTUAL DISTURBANCES Medical Problems: HTN, HYPERLIPIDEMIA DSM 5 Symptoms Update: SCHIZOAFFECTIVE DIORDER BIPOLAR Medication Change: No Medical Record Reviewed: Yes Mental Status Examination - Cognitive Function Orientation: Person, Place Attention: Poor Concentration: Poor Association: Loose Fund of Knowledge: Poor - Mood Mood: Anxious - Affect Affect: Constricted, Depressed - Speech Speech: Loud - Formal Thought Process Formal Thought Process: Paranoia, Circumstantial - Suicidal Ideation Suicidal Ideation: No - Homicidal Ideation Homicidal Ideation: No Goal/Treatment Plan - Goal/Treatment Plan Need for Continued Stay: Discharge may exacerbated symptoms, Severe functional impairment Progress Toward Problem(s) and Goals/Treatment Plan: clozaril 300mg with plan to uptitrate TO 400 continue trileptal , pt needs lot of encouragement to take medications group and supportive therapy Estimated Date of D/C: 01/27/17
--- NOTE | 2017-01-25 14:15 | PCM.PYCHPN ---
Psychiatric Progress Note - Psychiatric Progress Note Patient seen today, length of contact: pt evaluated discussed with team chart reviewed Patient Chief Complaint: I WILL NOT TAKE TRILEPTAL IT HURTS MY BODY Problems Identified/Issues Discussed: PT ON EVALUATION, CONTINUES TO BE IRRITABLE, PARTIALLY COMPLIANT WITH MEDICATIONS, SOMATICALLY PREOCCUPIED, CONTINUES TO BE PARANOID AND GUARDED, DENIED ANY CURRENT COMMAND HALLUCINATIONS POOR INSIGHT INTO ILLNESS, DENIED ANY CURRENT SUICIDAL OR HOMICIDAL IDEATIONS, Medical Problems: HTN, HYPERLIPIDEMIA DSM 5 Symptoms Update: SCHIZOPHRENIA Medication Change: No Medical Record Reviewed: Yes Mental Status Examination - Cognitive Function Orientation: Person, Place Attention: Poor Concentration: Poor Association: Loose Fund of Knowledge: Poor - Mood Mood: Anxious - Affect Affect: Constricted, Depressed - Speech Speech: Loud - Formal Thought Process Formal Thought Process: Paranoia, Circumstantial - Suicidal Ideation Suicidal Ideation: No - Homicidal Ideation Homicidal Ideation: No Goal/Treatment Plan - Goal/Treatment Plan Need for Continued Stay: Discharge may exacerbated symptoms, Severe functional impairment Progress Toward Problem(s) and Goals/Treatment Plan: clozaril 300mg with plan to uptitrate TO 400 continue trileptal , pt needs lot of encouragement to take medications group and supportive therapy Estimated Date of D/C: 01/27/17
--- NOTE | 2017-01-26 18:25 | PCM.PYCHPN ---
Psychiatric Progress Note - Psychiatric Progress Note Patient seen today, length of contact: pt evaluated discussed with team chart reviewed Patient Chief Complaint: I want to leave Problems Identified/Issues Discussed: PT ON EVALUATION, LESS ANXIOUS AND APPEARS CALMER, BETTER COMMUNICATION, THOUGHT PROCESS LESS DISORGANIZED, CONTINUES TO BE PARTIALLY COMPLIANT WITH MEDICATIONS, REFUSING TRILEPTAL SOMATICALLY PREOCCUPIED, DENIED ANY CURRENT COMMAND HALLUCINATIONS POOR INSIGHT INTO ILLNESS, DENIED ANY CURRENT SUICIDAL OR HOMICIDAL IDEATIONS, Medical Problems: HTN, HYPERLIPIDEMIA Medication Change: No Medical Record Reviewed: Yes Mental Status Examination - Cognitive Function Orientation: Person, Place Attention: Poor Concentration: Poor Association: Loose Fund of Knowledge: Poor - Mood Mood: Anxious - Affect Affect: Constricted, Depressed - Speech Speech: Loud - Formal Thought Process Formal Thought Process: Paranoia, Circumstantial - Suicidal Ideation Suicidal Ideation: No - Homicidal Ideation Homicidal Ideation: No Goal/Treatment Plan - Goal/Treatment Plan Need for Continued Stay: Discharge may exacerbated symptoms, Severe functional impairment Progress Toward Problem(s) and Goals/Treatment Plan: clozaril 300mg with plan to uptitrate ACCORDING TO CLINICAL SIGNS AND SYMPTOMS continue trileptal , pt needs lot of encouragement to take medications group and supportive therapy Estimated Date of D/C: 01/27/17
--- NOTE | 2017-01-27 17:51 | PCM.PYCHPN ---
Psychiatric Progress Note - Psychiatric Progress Note Patient seen today, length of contact: pt evaluated discussed with team chart reviewed Patient Chief Complaint: I am watching a movie Problems Identified/Issues Discussed: PT ON EVALUATION, LESS ANXIOUS AND APPEARS CALMER, LESS ISOLATIVE , ATTENDING GROUPSBETTER COMMUNICATION, THOUGHT PROCESS LESS DISORGANIZED, CONTINUES TO BE PARTIALLY COMPLIANT WITH MEDICATIONS, REFUSING TRILEPTAL , DENIED ANY CURRENT COMMAND HALLUCINATIONS POOR INSIGHT INTO ILLNESS, DENIED ANY CURRENT SUICIDAL OR HOMICIDAL IDEATIONS, Medical Problems: HTN, HYPERLIPIDEMIA DSM 5 Symptoms Update: schizoaffective disorder bipolar Medication Change: No Medical Record Reviewed: Yes Mental Status Examination - Cognitive Function Orientation: Person, Place Attention: Poor Concentration: Poor Association: Loose Fund of Knowledge: Poor - Mood Mood: Anxious - Affect Affect: Constricted, Depressed - Speech Speech: Loud - Formal Thought Process Formal Thought Process: Paranoia, Circumstantial - Suicidal Ideation Suicidal Ideation: No - Homicidal Ideation Homicidal Ideation: No Goal/Treatment Plan - Goal/Treatment Plan Need for Continued Stay: Discharge may exacerbated symptoms, Severe functional impairment Progress Toward Problem(s) and Goals/Treatment Plan: clozaril 300mg with plan to uptitrate ACCORDING TO CLINICAL SIGNS AND SYMPTOMS continue trileptal , pt needs lot of encouragement to take medications group and supportive therapy Estimated Date of D/C: 01/27/17
--- NOTE | 2017-01-28 14:24 | PCM.PYCHPN ---
Psychiatric Progress Note - Psychiatric Progress Note Patient seen today, length of contact: pt evaluated discussed with team chart reviewed Patient Chief Complaint: I am sleepy Problems Identified/Issues Discussed: PT ON EVALUATION, LESS ANXIOUS AND APPEARS CALMER, BETTER COMMUNICATION, THOUGHT PROCESS LESS DISORGANIZED, more COMPLIANT WITH MEDICATIONS, , DENIED ANY CURRENT COMMAND HALLUCINATIONS POOR showing some INSIGHT INTO ILLNESS, DENIED ANY CURRENT SUICIDAL OR HOMICIDAL IDEATIONS, Medical Problems: HTN, HYPERLIPIDEMIA DSM 5 Symptoms Update: schizoaffective disorder Medication Change: No Medical Record Reviewed: Yes Mental Status Examination - Cognitive Function Orientation: Person, Place Attention: Poor Concentration: Poor Association: Loose Fund of Knowledge: Poor - Mood Mood: Neutral - Affect Affect: Constricted, Depressed - Speech Speech: Appropriate - Formal Thought Process Formal Thought Process: Circumstantial - Suicidal Ideation Suicidal Ideation: No - Homicidal Ideation Homicidal Ideation: No Goal/Treatment Plan - Goal/Treatment Plan Need for Continued Stay: Discharge may exacerbated symptoms, Severe functional impairment Progress Toward Problem(s) and Goals/Treatment Plan: clozaril 300mg trileptal 300 mg bid , pt needs lot of encouragement to take medications group and supportive therapy Estimated Date of D/C: 01/27/17
--- NOTE | 2017-01-29 11:05 | PCM.PYCHPN ---
Psychiatric Progress Note - Psychiatric Progress Note Patient seen today, length of contact: pt evaluated discussed with team chart reviewed Patient Chief Complaint: I need to take care of my finances outside Problems Identified/Issues Discussed: PT ON EVALUATION, LESS ANXIOUS AND APPEARS CALMER, BETTER COMMUNICATION, THOUGHT PROCESS LESS DISORGANIZED, more COMPLIANT WITH MEDICATIONS, , DENIED ANY CURRENT COMMAND HALLUCINATIONS POOR showing some INSIGHT INTO ILLNESS, DENIED ANY CURRENT SUICIDAL OR HOMICIDAL IDEATIONS, Medical Problems: HTN, HYPERLIPIDEMIA Medication Change: No Medical Record Reviewed: Yes Mental Status Examination - Cognitive Function Orientation: Person, Place Attention: Poor Concentration: Poor Association: Loose Fund of Knowledge: Poor - Mood Mood: Neutral - Affect Affect: Constricted, Depressed - Speech Speech: Appropriate - Formal Thought Process Formal Thought Process: Circumstantial - Suicidal Ideation Suicidal Ideation: No - Homicidal Ideation Homicidal Ideation: No Goal/Treatment Plan - Goal/Treatment Plan Need for Continued Stay: Discharge may exacerbated symptoms, Severe functional impairment Progress Toward Problem(s) and Goals/Treatment Plan: clozaril 300mg , follow up on wbc trileptal 300 mg bid , pt needs lot of encouragement to take medications group and supportive therapy Estimated Date of D/C: 01/27/17
[2017-01-30 08:02] LABS: BASO % 0.6 % (0.0-2.0); EOS # 0.2 K/uL (0.0-0.7); EOS % 5.3 % (0.0-4.0); LYMPH # 1.5 K/uL (1.0-4.3); LYMPH % 35.7 % (20.0-40.0); MEAN CELL VOLUME 91.3 fl (80.0-94.0); MEAN CORPUSCULAR HEMOGLOBIN 30.8 pg (27.0-31.0); MEAN CORPUSCULAR HGB CONC 33.7 g/dL (33.0-37.0); MEAN PLATELET VOLUME 9.4 fl (7.2-11.7); MONO # 0.3 K/uL (0.0-0.8); MONO % 8.1 % (0.0-10.0); NEUT # 2.2 K/uL (1.8-7.0); NEUT % 50.3 % (50.0-75.0); NRBC % 0.1 % (0.0-0.0); RED CELL DISTRIBUTION WIDTH 13.9 % (11.5-14.5); WHITE BLOOD COUNT 4.3 K/uL (4.8-10.8)
--- NOTE | 2017-01-30 09:45 | PCM.PYCHPN ---
Psychiatric Progress Note - Psychiatric Progress Note Patient seen today, length of contact: pt evaluated discussed with team chart reviewed Patient Chief Complaint: I want to go home Problems Identified/Issues Discussed: Pt seen in day room, cooperative, good eye contact, speech more productive and thought process less disorganized, pt continues to be partially compliant with medications refusing trileptal, denied any current S/H I denied perceptual disturbances, no reported side effects of clozaril Medical Problems: HTN, HYPERLIPIDEMIA DSM 5 Symptoms Update: schizoaffective disorder Medication Change: Yes (discontinue trileptal) Medical Record Reviewed: Yes Mental Status Examination - Cognitive Function Orientation: Person, Place Attention: WNL Concentration: WNL Association: Loose Fund of Knowledge: Poor - Mood Mood: Neutral - Affect Affect: Constricted - Speech Speech: Appropriate - Formal Thought Process Formal Thought Process: Circumstantial Psychotic Thoughts and Behaviors: pt denied perceptual disturbances, non ellicited - Suicidal Ideation Suicidal Ideation: No - Homicidal Ideation Homicidal Ideation: No Goal/Treatment Plan - Goal/Treatment Plan Need for Continued Stay: Discharge may exacerbated symptoms, Severe functional impairment Progress Toward Problem(s) and Goals/Treatment Plan: continue clozaril 300mg , wbc noted to 4.3 will repeat tomorrow discontinue trileptal , group and supportive therapy Estimated Date of D/C: 01/27/17
[2017-01-31 06:12] LABS: BASO # 0.1 K/uL (0.0-0.2); BASO % 1.2 % (0.0-2.0); EOS # 0.3 K/uL (0.0-0.7); EOS % 5.4 % (0.0-4.0); HEMATOCRIT 40.9 % (35.0-51.0); LYMPH # 1.9 K/uL (1.0-4.3); LYMPH % 39.6 % (20.0-40.0); MEAN CELL VOLUME 92.9 fl (80.0-94.0); MEAN CORPUSCULAR HEMOGLOBIN 30.1 pg (27.0-31.0); MEAN CORPUSCULAR HGB CONC 32.5 g/dL (33.0-37.0); MEAN PLATELET VOLUME 10.1 fl (7.2-11.7); MONO # 0.5 K/uL (0.0-0.8); MONO % 10.9 % (0.0-10.0); NEUT # 2.1 K/uL (1.8-7.0); NEUT % 42.9 % (50.0-75.0); NRBC % 0.1 % (0.0-0.0); RED CELL DISTRIBUTION WIDTH 14.1 % (11.5-14.5); WHITE BLOOD COUNT 4.8 K/uL (4.8-10.8)
[2017-01-31 09:25] VITALS: BP 146/91; PULSE 91; RESP 20; TEMP 97.2
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
== END 2017-01-31 14:00 | disposition home or self-care (01) | DRG 885 ==
LOC: H.ER 15:44 → H.ERHOLD 18:39 → H.PSYCH 01-19 02:08
PROVIDERS: ADMIT Psychiatry & Neurology Psychiatry; ATTEND Psychiatry & Neurology Psychiatry
PROC: GZHZZZZ Group Psychotherapy (ICD-10-PCS; principal; 2017-01-19)
PROC: GZ51ZZZ Individual Psychotherapy, Behavioral (ICD-10-PCS; 2017-01-19)
DX: F25.0 Schizoaffective disorder, bipolar type (principal); F22 Delusional disorders; E11.9 Type 2 diabetes mellitus without complications; E78.00 Pure hypercholesterolemia, unspecified; E78.5 Hyperlipidemia, unspecified; F17.210 Nicotine dependence, cigarettes, uncomplicated; I10 Essential (primary) hypertension; J43.9 Emphysema, unspecified; Z79.01 Long term (current) use of anticoagulants; Z79.82 Long term (current) use of aspirin; Z79.899 Other long term (current) drug therapy; F32.9 Major depressive disorder, single episode, unspecified; F41.9 Anxiety disorder, unspecified; Z79.84 Long term (current) use of oral hypoglycemic drugs

== ENCOUNTER 2017-03-26 08:20 | Emergency (ER) | payer MEDICARE, OTHER ==
[2017-03-26 08:24] VITALS: O2SAT 100
[2017-03-26 08:25] VITALS: BMI 25.3
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
[2017-03-26 15:08] VITALS: BP 131/80; PULSE 68; RESP 14; TEMP 98
== END 2017-03-26 15:13 | disposition home or self-care (01) ==
LOC: H.ER 08:20
DX: F20.9 Schizophrenia, unspecified (principal); E11.9 Type 2 diabetes mellitus without complications

== ENCOUNTER 2017-04-07 04:04 | Emergency (ER) | payer MEDICARE, OTHER ==
[2017-04-07 04:04] VITALS: BMI 25.3
[2017-04-07 04:17] VITALS: BP 131/64; PULSE 67; RESP 16; TEMP 98; O2SAT 98
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
--- NOTE | 2017-04-07 10:02 | ED PDOC ---
- ECG O2 Sat by Pulse Oximetry: 98 (RA) Medical Decision Making Medical Decision Makin:00 --Patient was transferred to id by Dr. Zuniga, pending crisis evaluation 10:00 --Patient seen by crisis, no hospital admission necessary. Patient will be discharged to correction, per Dr. Cabello. Disposition Counseled Patient/Family Regarding: Studies Performed, Diagnosis, Need For Followup - Clinical Impression Clinical Impression: Schizophrenia - POA Present On Arrival: None - Disposition Referrals: [facility] [Outside] Disposition: Discharged to Home Care Disposition Time: 09:00 Condition: GOOD Instructions: Schizophrenia (ED), Normal Exam (ED) Forms: [facility] (Bangladeshi)
== END 2017-04-07 12:02 | disposition home or self-care (01) ==
LOC: H.ER 04:04
DX: F20.9 Schizophrenia, unspecified (principal); E11.9 Type 2 diabetes mellitus without complications; E78.00 Pure hypercholesterolemia, unspecified; F32.9 Major depressive disorder, single episode, unspecified; F41.9 Anxiety disorder, unspecified; I10 Essential (primary) hypertension; J43.9 Emphysema, unspecified; Z79.01 Long term (current) use of anticoagulants; Z79.82 Long term (current) use of aspirin; Z79.84 Long term (current) use of oral hypoglycemic drugs; Z86.718 Personal history of other venous thrombosis and embolism; Z88.0 Allergy status to penicillin